=== PATIENT | female | born 1940 | race Caucasian/White ===

== ENCOUNTER → 2016-09-04 | Outpatient (CLI) | payer OTHER, BC ==
[~2016-09-04] MED LIST: ALLOPURINOL 10100 M1 PO; AMARYL4 MG PO; AMOXICILLIN 50500 MG PO; ASPIRIN OR; ASPIRIN81 M2 PO; AUGMENTIN 875875 MG PO; B-12 DOTS500 MCG PO; BAYER CHEWABLE81 MG PO; BYSTOLIC10 MG PO; CARDIZEM CD240 MG PO; CENTRUM SILVER1 EAC2 PO; CENTRUM SILVER1 EAC4 PO; CIPRO250 M1 PO; CLOBETASOL EMOL15 GM TOP; COZAAR 25 MG TA25 MG OR; DIOVAN 80 MG TA80 M1 PO; EVISTA PO; FLAGYL500 MG PO; FLECAINIDE ACET50 M1 PO; FLORANEX GRANU1 EACH PO; FUROSEMIDE 40 M40 M1; GAS RELIEF 8080 MG PO; GLUCOPHAGE1000 MG; GLUCOPHAGE500 MG PO; HUMALOG PE100 UNIT/1; INSULIN; IRBESARTAN-HCT1 EAC1 PO; K-DUR 20 MEQ T20 MEQ PO; KEFLEX500 MG PO; KLOR-CON 1010 MEQ PO; LAMISIL250 MG; LASIX 40 MG TAB40 M1 PO; LASIX 40 MG TAB40 M2 PO; LASIX 80 MG TAB80 M1 PO; LASIX 80 MG TAB80 MG PO; LEVAQUIN 500 M500 M2 PO; LEVAQUIN 500 M500 M5 PO; LEVEMIR SUBQ; LEVOFLOXACIN750 MG PO; LORTAB 5 MG/5001 TA1 PO; LOSARTAN-HCTZ1 EAC2 PO; METFORMIN HCL500 MG PO; MICARDIS40 MG; MICARDIS40 MG PO; MONISTAT 745 GM VAG; MULTIVITAMINS PO; NAFTIN45 GM; NAFTIN45 GM TP; NORCO 10-325 T1 EACH PO; NOVOLOG100 UNIT/1; POTASSIUM CITR10 ME1 PO; POTASSIUM20 PO; PRAVACHOL20 MG PO; PROTONIX40 M2 PO; SIMETHICON CHEW80 MG PO; TYLENOL325 MG PO; VESICARE 5 MG TA5 MG PO; VITAMIN D1000 UNI1 PO; VITAMIN D32000 UNI1 PO; VITAMIN D400 UNI1 PO; ZOCOR 20 MG TAB20 M1 PO; [UNRECOGNIZED DRUG - OTHER]
== END ==
LOC: RAD 11:57
DX: N20.0 Calculus of kidney (principal); N20.1 Calculus of ureter

== ENCOUNTER 2016-10-24 11:12 | Inpatient (IN) | payer OTHER, BC ==
[~2016-10-24] VITALS: Ht 152.4 cm; Wt 99.3 kg
--- NOTE | ~2016-10-24 | D ---
[facility] [place] [address] DISCHARGE SUMMARY Name: AGGIE YING SHELBIE Room #: 420-P [facility] IN M.R.#: [id number] Admission: 10/24/16 Attend Phys: Leroy Chávez MD Discharge: 10/27/16 Date of : 42 Report #: [id number] THIS REPORT FOR: //name// CC: Leroy Chávez DATE OF SERVICE: 10/27/2016 SUMMARY OF HISTORY AND PHYSICAL: The patient has a known history of kidney stones, but was pleased that she had not been in the hospital for over a year, until she presented to my office on 10/23/2016. She was in her usual state of health when she woke that morning and noted that she had a bloody urine. She came to the office where urinalysis was positive and was started on sulfamethoxazole/trimethoprim. She felt well, had been eating and drinking well and reported no weakness. However, the morning of admission, she awoke extremely weak and had difficulty walking to the bathroom. When she sat down on the toilet, she actually was so weak that she slid off to one side and fell on the floor. She was so weak, it took her 2 hours before she was able to move across her home to the telephone where she was able to call her family to come and unlock the door, after which she was taken by the paramedics to the emergency room. She was found to be extremely weak, have marked leukocytosis as well as grossly red urine and required admission for intravenous antibiotics as well as intravenous fluid support. She appeared septic. SUMMARY OF HOSPITAL COURSE: She was placed on a telemetry floor with intravenous antibiotics and intravenous fluid support. She steadily did well. She remained in normal sinus rhythm throughout and there was no hint that she might have an episode of her paroxysmal atrial fibrillation. The second day, she was much better and was able to walk some around her room with the help of a walker and with physical therapy. She felt ready to be discharged the following day. On the third hospital day, 10/27/2016, she felt quite confident about returning home. She told that to the nursing staff. She appeared to the nursing staff to be stable, she was eating and drinking well, did not have nausea, vomiting or diarrhea, and was able to get around her hospital room herself with the aid of her walker. Her urine culture from the hospital returned with exactly the same organism and same sensitivity pattern as was done the day before, 10/23/2016, in the office, and multiple previous cultures prior to that were done in the office. The organism is Klebsiella pneumoniae and was sensitive to everything except ampicillin. [address] [address] DISCHARGE SUMMARY Name: AGGIE YING SHELBIE Room #: 420-P [facility] IN M.R.#: [id number] Admission: 10/24/16 Attend Phys: Leroy Chávez MD Discharge: 10/27/16 Date of : 42 Report #: [id number] She was seen in her urologist, Dr. Gabino Odom. SUMMARY OF LABORATORY DATA: Her potassium was low at 3.3. She was hydrated on admission with a BUN of 21, which dropped to 16 with rehydration. Her creatinine was 1.2 on admission, also dehydrated, and with rehydration dropped to 0.8 -- fulfilling the criteria for acute renal failure. Her blood sugar high was 257, but improved with rehydration, with her feeling better, and with sliding scale insulin. Her liver function tests were elevated with SGOT of 110 that improved to 68 at discharge. Her albumin was low at 3.0 on admission and dropped to 2.5 with rehydration. Her white count easily portrayed the picture of sepsis -- 19,000 on admission with a left shift from 13% band forms. There were 2% lymphocytes, which gave an absolute lymphocyte count of 380, also qualifying for severe malnutrition. Urinalysis was grossly abnormal with 2+ leukocytes, many WBCs, many bacteria with many squamous epithelial cells. The trimethoprim sulfa that she had taken already put a dent in her urine culture, greater than 100,000 CFU/mL present on October 23 in my office, after taking her trimethoprim sulfa, the colony count dropped to 40,000 but it was sensitive to all antibiotics tested (it was not tested against ampicillin as a solo agent). Note is made that this same organism was not present in 2016 on multiple occasions but was present in 2013. CT scan of the head on admission showed no acute abnormalities and simply a scattered low density periventricular white matter changes that are consistent with her age. Fluid retention cyst was possible in the sphenoid sinus. CT scan for renal stone protocol showed atelectasis within the lung bases, diffuse fatty liver and adenoma of the right adrenal gland with generalized thickening of left adrenal gland suggesting hyperplasia. Stones on the right mid calyces measured up to 3.1 cm in cranial caudal and 9 mm in transverse and AP dimensions with several smaller stones in the left inferior kidney and left middle kidney measuring up to 4 mm in size. Diverticulosis without diverticulitis was seen. Uterus, ovaries and bladder were unremarkable. A stable fat containing supraumbilical hernia was present. DISCHARGE DIAGNOSES: 1. Acute pyelonephritis with renal parenchymal and systemic effects, infection in the urinary tract. 2. Marked weakness as an organ dysfunction from severe sepsis. 3. Arterial hypoxemia as a organ dysfunction with estimated paO2 of 73 despite supplementation with 2 liters of nasal oxygen for an paO2/FiO2 ratio of 260 (less than 300). [facility] [address] [place] [address] DISCHARGE SUMMARY Name: AGGIE YING SHELBIE Room #: 420-P [facility] IN M.R.#: [id number] Admission: 10/24/16 Attend Phys: Leroy Chávez MD Discharge: 10/27/16 Date of : 42 Report #: [id number] 4. Acute renal failure with a creatinine of 1.2 on admission that dropped to 0.8 with rehydration, acute renal failure due to volume depletion. 5. Severe malnutrition present on admission with an albumin that dropped to 2.5 with rehydration, and absolute lymphocyte count of 380 on admission. 6. Atelectasis was present on the CT scanning adding to respiratory failure. 7. Hypokalemia present on admission and persisted. 8. Paroxysmal atrial fibrillation was controlled by her medications and did not occur. 9. Fatty liver was displayed on CT scanning. 10. Severe bilateral kidney stone disease -- a large kidney stone present on the right, 3.1 cm cranial caudal by 9 mm AP and 9 mm transverse dimensions. The left mid and left inferior kidney small stones are present measuring up to 4 mm. 11. Small right adrenal mass characteristic of a small adenoma that is stable from prior study of 09/20/2015. 12. Stable left adrenal thickening suggestive of hyperplasia. 13. The gallbladder is surgically absent. 14. Diverticulosis without diverticulitis. 15. Uterus, ovaries and bladder remained unremarkable. 16. Age-related ischemic white matter disease in the brain. 17. Sphenoid sinus mass with some characteristics of a cyst of fluid retention, mucus or soft tissue lesion with no prior CT studies available for comparison. 18. Type 2 diabetes. 19. Morbid obesity. 20. Chronic edema of the lower extremities. 21. Chronically infected urine and kidney stones with the same organism -- pansensitive Klebsiella pneumoniae. 22. Left breast cancer 2009, stage 0 with lumpectomy and radiation. 23. Chronic lymphedema with compression stockings. 24. Glaucoma. 25. 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 26. Hypertension. 27. Psoriasis that can be severe. 28. Atherosclerotic vascular disease. 29. History of lumbar spinal stenosis with sciatica. 30. Complicated left renal stone lithotripsy 07/26/2015 -- 08/27/2015. 31. Multiple allergies: AMOXICILLIN, CEPHALEXIN, note is made she tolerated Zosyn in hospital and Augmentin in the past. Other allergies are noted. PLAN: The patient is discharged to follow up with home health at home -- she tolerated ciprofloxacin 250 mg twice daily and was sent to her home pharmacy. Her potassium citrate 10 mEq extended release tablets were doubled from 1-2 tablets 3 times daily because of her chronically low potassium. She is to continue Bystolic 10 mg daily, diltiazem 240 mg extended release once daily, flecainide 50 mg twice daily, pravastatin 20 mg daily, metformin 500 mg 2 tablets daily, Evista 60 mg daily for her breast cancer, allopurinol 100 mg once [address] [address] DISCHARGE SUMMARY Name: AGGIE YING SHELBIE Room #: 420-P [facility] IN ..#: [id number] Admission: 10/24/16 Attend Phys: Leroy Chávez MD Discharge: 10/27/16 Date of : 42 Report #: [id number], aspirin 81 mg daily and B12 tablets 1000 mcg twice daily. She can also resume vitamin D several thousand units daily, simethicone as needed, Valsartan 40 mg daily when her blood pressure returns to being elevated and furosemide 40 mg once daily when her swelling returns to be a problem. Simethicone can be resumed. She is to see me in my office in 1 week. She is encouraged to follow up with Dr. Gabino Odom, her urologist. Impression is that her kidney stones are infected and removal of the kidney stones will be required to rid her of the risk of recurrent infections. She is also to follow up with Dr. Franko Zapata, her deputy k 9. By: 22 2334 Leroy Chávez MD /isidra
--- NOTE | ~2016-10-24 | H ---
[facility] [place] [address] HISTORY AND PHYSICAL Name: AGGIE YING SHELBIE Room #: 420-P [facility] IN M.R.#: [id number] Admission: 10/24/16 Attend Phys: Leroy Chávez MD Discharge: 10/27/16 Date of : 42 Report #: [id number] THIS REPORT FOR: //name// CC: Leroy Chávez DATE OF SERVICE: 10/24/2016 CHIEF COMPLAINT: Pyelonephritis, possibly sepsis from recurrent urinary tract infection caused by chronically infected kidney stones. HISTORY OF PRESENT ILLNESS: The patient had been doing pretty well and was pleased that she had not been admitted to the hospital for more than a year when yesterday morning she awoke feeling not quite usual, and noticed that she had bright red urine. She immediately made an appointment, came to the office where the urine was indeed red and was 3+ positive for blood and leukocytes. She has had several recent episodes of bacteria in her urine that have all been the same bacteria: Klebsiella pneumoniae with the same resistance pattern: resistant to ampicillin, sensitivities to cefazolin are not reported, and otherwise sensitive to all the other antibiotics commonly tested. Note is made that on September 11, she had 50,000 to 100,000 per mL whereas August 21, it was greater than 100,000 per mL. She was given a prescription for sulfamethoxazole/trimethoprim double strength 1 twice daily and went home. She had reported that she had just been to see her urologist Dr. Odom who had told her that she had no kidney stones, and was quite pleased with that report. This morning, she awoke very weak, had difficulty making it to the bathroom, but when she sat down on the toilet, she actually slid off to the side and fell on the floor. She insists it took her 2 hours before she was able to maneuver herself to her telephone. She was able to call her son, who came in, unlocked the front to let the paramedics in. She was evaluated in the Emergency Room and found to be quite weak, and to have leukocytosis as well as still red grossly abnormal urine and to require admission for intravenous antibiotics. She also required admission for intravenous fluids because of nausea and vomiting. She has complicated bilateral large kidney stones and was admitted 5 times in a 3-month span of time. She was first admitted with sepsis and Proteus mirabilis in the urine and the blood. She had hydronephrosis on the left and a percutaneous nephrostomy. She underwent lithotripsy and became sensitive afterwards as the cause of that admission. She underwent a left percutaneous nephrostomy and lithotomy. She then developed cellulitis in her legs followed by an atypical pneumonia and fever to 103 and dehydration with volume depletion and elevated creatinine/acute kidney failure led to accumulation of her oral hypoglycemics and profound low blood sugars. [facility] [address] [place] [address] HISTORY AND PHYSICAL Name: AGGIE YING SHELBIE Room #: 420-P [facility] IN M.R.#: [id number] Admission: 10/24/16 Attend Phys: Leroy Chávez MD Discharge: 10/27/16 Date of : 42 Report #: [id number] She also had had several episodes of paroxysmal atrial fibrillation, now requires oral antidysrhythmics. She has type 2 diabetes requiring insulin at times. Left breast cancer stage 0 with a lumpectomy and radiation in 2009 and was just recently released by her oncologist. She wears compression stockings at times for her lymphedema in both lower legs and she has chronic severe morbid obesity. Cholecystectomy in September 2010, diverticulitis episodes, glaucoma, constant yeast inflammation underneath her pannus, hypertension, psoriasis, atherosclerotic vascular disease, hepatic steatosis, overactive bladder, history of lumbar spinal stenosis with sciatica. CURRENT MEDICATIONS: Centrum Silver daily. She takes reloxafen (Evista) 60 mg once daily for treatment and prevention of recurrence of her breast cancer, flecainide 1 tablet 150-mg tablet twice daily, metformin 500 mg 2 in the morning and 2 in the evening, 1 baby aspirin, vitamin D 1000 units, pravastatin 20 mg in the evening, potassium citrate 10 mEq 1 in the morning and 2 in the evening, valsartan 40 mg daily for blood pressure, Bystolic 10 mg daily for blood pressure and heart rhythm control, diltiazem extended release 240 mg 1 in the morning, chlorthalidone 50 mg once daily, allopurinol 100 mg 1/2 tablet daily, and recently started 1000 mcg of vitamin B12 orally twice daily for vitamin B12 deficiency. ALLERGIES: CODEINE causes instant diarrhea, CEPHALEXIN causes red face, AMOXICILLIN causes diarrhea, but she has been able to take Augmentin in the past. She tolerates Zosyn well and there is another entry where she reports AMOXICILLIN caused rash. FAMILY HISTORY: Noncontributory. REVIEW OF SYSTEMS: She sleeps in a recliner because of chronic back pain, she also undoubtedly has significant obstructive sleep apnea which she dismisses. She has chronic intertriginous irritation underneath the folds of her pannus. ADDITIONAL DIAGNOSES: Glaucoma, arthritis, bladder dysfunction, lumbar spinal stenosis, gallstone pancreatitis in August of 2000 with a subsequent cholecystectomy. Chronic lower extremity edema and morbid obesity, aortic stenosis, colon polyps, colonoscopy 01/15/2014, found [address] Vicente, sigmoid diverticulosis without inflammation and internal hemorrhoids, and a repeat colonoscopy recommended in 5 years, 01/15/2019. PHYSICAL EXAMINATION: GENERAL: A 76-year-old morbidly obese woman in her hospital bed and she appears weak and exhausted. She is alert and able to answer questions appropriately. She was nauseated and the exam had to be interrupted for her to throw up. [facility] [email or web address] [address] HISTORY AND PHYSICAL Name: AGGIE YING SHELBIE Room #: 420-P [facility] IN [facility].#: [id number] Admission: 10/24/16 Attend Phys: Leroy Chávez MD Discharge: 10/27/16 Date of : 42 Report #: [id number] HEENT: Remarkable for dry oral mucosa. LUNGS: Clear. CARDIOVASCULAR: Tones are normal and there is a soft systolic murmur present. NECK: There is no CVA tenderness present. ABDOMEN: Morbidly obese, soft, and nontender. EXTREMITIES: There is moderate edema in the extremities to above the knee, the skin of the lower legs is intact. NEUROLOGIC: Screening neurological examination is grossly intact. LABORATORY DATA: CT scan shows a small adenoma in the right adrenal gland and mild left adrenal hyperplasia. There are multiple stones in the right mid calyces with the largest being 3.1 cm craniocaudal and 9 mm AP and 9 mm transverse with small stones within the mid and left inferior kidney measuring up to 4 mm. White blood cell count is 19,000 with 13% bands and 83% segmented neutrophils. Her creatinine was 1.2 with a BUN of 21 and an estimated GFR 44. This qualifies for acute renal failure given her baseline creatinine 0.82 and estimated GFR of 70. Her baseline BUN is 21, and the current BUN of 21 indicates that she has been vomiting and not eating well. Magnesium is low at 1.7. ASSESSMENT: 1. She appears to have some of the criteria of sepsis. 2. Source of sepsis is an infection in the urinary tract. 3. Persistent bilateral kidney stones, suspected of being the source of the infection. 4. Systemic organ dysfunction: Gastrointestinal tract in that she is vomiting, muscles with extreme weakness, and acute renal failure. 5. Acute renal failure based on volume depletion. 6. Other multiple medical problems. 7. Paroxysmal atrial fibrillation - currently in sinus rhythm. 8. Other multiple medical problems as listed above. PLAN: The patient is admitted to at [facility] telemetry unit, and given intravenous antibiotics. She is being given intravenous fluid replacement as well. She has been seen by the physician diver assistant of the Urology Service. She is receiving effective medications to help control her nausea. Magnesium will be replaced [place] [address] HISTORY AND PHYSICAL Name: AGGIE YING SHELBIE Room #: 420-P [facility]..#: [id number] Admission: 10/24/16 Attend Phys: Leroy Chávez MD Discharge: 10/27/16 Date of : 42 Report #: [id number] ADDITIONAL DIAGNOSIS: Diffuse marked weakness. <ELECTRONICALLY SIGNED> By: Leroy Chávez MD 10/31/16 2037 [id number] [id number] Leroy Chávez MD /nt
--- NOTE | ~2016-10-24 | EKG ---
[place] [address] [place] [address] ELECTROCARDIOGRAM REPORT Name: AGGIE YING SHELBIE Room #: 420-P ADM IN M.R.#: [id number] Admission: 10/24/16 Attend Phys: Leroy Chávez MD Discharge: Date of : 42 Report #: [id number] THIS REPORT FOR: //name// [facility] ED Test Date: 2016-10-24 Test Time: 11:56:59 Pat Name: AGGIE YING Department: Room: [facility] Gender: F Web Development Manager: harley : 1940 Requested By: Jojo Kim Order Number: [id number] MD: Dwight Jay Measurements Intervals [place] Rate: 89 P: 0 ME: 156 QRS: -70 QRSD: 138 T: 11 QT: 410 QTc: 499 Interpretive Statements Sinus rhythm with first degree AV block Left bundle branch block No previous ECG available for comparison Electronically Signed On 10-24-2016 19:08:03 CDT by Dwight Jay [email or web address] <ELECTRONICALLY SIGNED> By: Dwight Jay MD, [facility] 10/24/16 1908 1156 1156 Dwight Jay MD, FACC /EPI
--- NOTE | ~2016-10-24 | EKG ---
[place] [address] [facility] [employer] [place] [address] ELECTROCARDIOGRAM REPORT Name: AGGIE YING SHELBIE Room #: 420-P ADM IN M.R.#: [id number] Admission: 10/24/16 Attend Phys: Leroy Chávez MD Discharge: Date of : 42 Report #: [id number] THIS REPORT FOR: //name// [facility] Test Date: 2016-10-24 Test Time: 19:58:04 Pat Name: AGGIE YING Department: Room: 420 P Gender: F Liability Claims Examiner: Griselda PADILLA : 1940 Requested By: Leroy Chávez Order Number: [id number] MD: Dwight Jay Measurements Intervals [place] Rate: 76 P: 12 WY: 232 QRS: -72 QRSD: 132 T: 10 QT: 448 QTc: 504 Interpretive Statements Sinus rhythm Prolonged [place] interval Left bundle branch block Compared to ECG 10/24/2016 11:56:59 No significant change was found Electronically Signed On 10-25-2016 9:03:39 CDT by Dwight Jay [email or web address] <ELECTRONICALLY SIGNED> By: Dwight Jay MD, [facility] 03/902 57 57 Dwight Jay MD, [facility] /EPI
[~2016-10-24 11:12] MED LIST changes: -ALLOPURINOL 10100 M1 PO; -ASPIRIN81 M2 PO; -B-12 DOTS500 MCG PO; -CENTRUM SILVER1 EAC2 PO; -CIPRO250 M1 PO; -DIOVAN 80 MG TA80 M1 PO; -KLOR-CON 1010 MEQ PO; -POTASSIUM CITR10 ME1 PO
[2016-10-24 12:11] LABS: URINE BILIRUBIN 1+ (Negative); URINE BLOOD 3+ (Negative); URINE COLOR YELLOW; URINE GLUCOSE-RANDOM* NEGATIVE (Negative); URINE KETONES TRACE (Negative); URINE LEUKOCYTES-REFLEX 2+ (Negative); URINE PROTEIN (DIPSTICK) 2+ (Negative); URINE UROBILINOGEN 0.2 E.U./dl (0.2-1.0)
[2016-10-24 12:13] LABS: ICTOTEST (BILI CONFIRMATORY) Positive (Negative)
[2016-10-24 12:21] LABS: CASTS None Seen /LPF (None Seen); CRYSTALS None Seen /LPF (None Seen); SQUAMOUS >10 Many /LPF (0-3)
[2016-10-24 12:22] LABS: URINE RBC >20 Many /HPF (0-2)
[2016-10-24 13:13] LABS: HEMATOCRIT 36.3 % (37.0-47.0); HEMOGLOBIN 12.1 gm/dL (12.0-15.0); MCHC 33.2 g/dL (28.0-37.0); MCV 93.3 fL (80.0-100.0); PLATELET COUNT 185 thou/uL (150-400); RBC 3.89 mil/uL (4.20-5.00); RDW 14.8 % (10.5-14.5)
[2016-10-24 13:16] LABS: MANUAL DIFF YES
[2016-10-24 13:40] LABS: ANION GAP 11 mmol/L (7-16); BUN 21 mg/dL (7-18); CALCIUM 9.9 mg/dL (8.5-10.1); CHLORIDE 100 mmol/L (98-107); CO2 24 mmol/L (21-32); CREATININE 1.2 mg/dL (0.6-1.3); GLUCOSE 257 mg/dL (70-99); MAGNESIUM 1.7 mg/dL (1.8-2.4); NT-PRO BRAIN NAT PEPTIDE 1982 pg/mL (<300); POTASSIUM 3.3 mmol/L (3.5-5.1); SODIUM 135 mmol/L (136-145); TROPONIN-I < 0.04 ng/mL (<0.04-0.07)
[2016-10-24 13:54] LABS: ABSOLUTE NEUTROPHILS 18.2 thou/uL (1.4-8.2); PLATELET ESTIMATE NORMAL; TOTAL CELL COUNT 100
[2016-10-24] MEDS ORDERED: KLOR-CON 1010 MEQ PO (18:14)
[2016-10-24] MEDS ORDERED: DIOVAN 80 MG TA80 M1 PO (18:16)
[2016-10-24] MEDS ORDERED: EVISTA PO (18:17)
[2016-10-24] MEDS ORDERED: ALLOPURINOL 10100 M1 PO (18:26)
[2016-10-24] MEDS ORDERED: CENTRUM SILVER1 EAC2 PO (18:33)
[2016-10-24] MEDS ORDERED: ASPIRIN81 M2 PO (18:33)
[2016-10-24] MEDS ORDERED: B-12 DOTS500 MCG PO (18:36)
[2016-10-25 06:47] LABS: HEMATOCRIT 33.3 % (37.0-47.0); HEMOGLOBIN 11.3 gm/dL (12.0-15.0); MCH 31.6 pg (26.0-34.0); MCHC 34.1 g/dL (28.0-37.0); MCV 92.7 fL (80.0-100.0); PLATELET COUNT 168 thou/uL (150-400); RBC 3.59 mil/uL (4.20-5.00); RDW 14.6 % (10.5-14.5); WBC 10.8 thou/uL (4.0-11.0)
[2016-10-25 06:48] LABS: MANUAL DIFF YES
[2016-10-25 07:06] LABS: CALCIUM 9.8 mg/dL (8.5-10.1); CREATININE 1.2 mg/dL (0.6-1.3); MAGNESIUM 1.9 mg/dL (1.8-2.4); POTASSIUM 3.3 mmol/L (3.5-5.1); TOTAL BILIRUBIN 0.5 mg/dL (<0.1-1.0)
[2016-10-25 07:42] LABS: ABSOLUTE NEUTROPHILS 10.3 thou/uL (1.4-8.2); ATYPICAL LYMPHS 1 %; TOTAL CELL COUNT 100
[2016-10-25 07:43] LABS: ANISOCYTOSIS SLIGHT
[2016-10-27 04:11] LABS: ABSOLUTE NEUTROPHILS 3.1 thou/uL (1.4-8.2); BASOPHILS 0.4 % (0.0-2.0); EOSINOPHILS 8.4 % (0.0-3.0); HEMATOCRIT 30.4 % (37.0-47.0); HEMOGLOBIN 10.4 gm/dL (12.0-15.0); LYMPHOCYTES 19.2 % (24.0-44.0); MCH 31.7 pg (26.0-34.0); MCHC 34.2 g/dL (28.0-37.0); MCV 92.9 fL (80.0-100.0); MONOCYTES 9.1 % (1.0-8.0); PLATELET COUNT 156 thou/uL (150-400); POLYS 62.9 % (36.0-66.0); RBC 3.27 mil/uL (4.20-5.00); RDW 14.5 % (10.5-14.5); WBC 4.9 thou/uL (4.0-11.0)
[2016-10-27 04:23] LABS: MANUAL DIFF NO
[2016-10-27 04:35] LABS: ALBUMIN 2.5 g/dL (3.4-5.0); CREATININE 0.8 mg/dL (0.6-1.3); MAGNESIUM 1.8 mg/dL (1.8-2.4); POTASSIUM 3.3 mmol/L (3.5-5.1); TOTAL BILIRUBIN 0.4 mg/dL (<0.1-1.0); TOTAL PROTEIN 6.2 g/dL (6.4-8.2); URIC ACID* 4.9 mg/dL (2.6-7.2)
[2016-10-27] MEDS ORDERED: POTASSIUM CITR10 ME1 PO (14:49)
[2016-10-27] MEDS ORDERED: CIPRO250 M1 PO (14:49)
== END 2016-10-27 16:43 | disposition home health service (06) | DRG 871 ==
LOC: ER 11:12 → 4E 13:59 → EROBS 13:59 → 4E 14:15
PROVIDERS: Emergency Medicine; Internal Medicine
PROC: 02HV33Z Insertion of Infusion Device into Superior Vena Cava, Percutaneous Approach (ICD-10-PCS; principal; 2016-10-26)
DX: A41.9 Sepsis, unspecified organism (principal); J96.00 Acute respiratory failure, unspecified whether with hypoxia or hypercapnia; N12 Tubulo-interstitial nephritis, not specified as acute or chronic; N17.9 Acute kidney failure, unspecified; Z68.41 Body mass index [BMI] 40.0-44.9, adult; I48.0 Paroxysmal atrial fibrillation; E11.9 Type 2 diabetes mellitus without complications; H40.9 Unspecified glaucoma; L40.9 Psoriasis, unspecified; E78.00 Pure hypercholesterolemia, unspecified; I10 Essential (primary) hypertension; M19.90 Unspecified osteoarthritis, unspecified site; E66.01 Morbid (severe) obesity due to excess calories; K57.30 Diverticulosis of large intestine without perforation or abscess without bleeding; E86.9 Volume depletion, unspecified; M54.30 Sciatica, unspecified side; I25.10 Atherosclerotic heart disease of native coronary artery without angina pectoris; N20.0 Calculus of kidney; Z88.1 Allergy status to other antibiotic agents; Z90.49 Acquired absence of other specified parts of digestive tract; Z93.6 Other artificial openings of urinary tract status; Z88.6 Allergy status to analgesic agent; Z85.3 Personal history of malignant neoplasm of breast
CPT/HCPCS: 10183

== ENCOUNTER → 2017-01-04 | Outpatient (CLI) | payer OTHER, BC ==
[~2017-01-04] MED LIST changes: +ALLOPURINOL 10100 M1 PO; +ASPIRIN81 M2 PO; +B-12 DOTS500 MCG PO; +CENTRUM SILVER1 EAC2 PO; +CIPRO250 M1 PO; +DIOVAN 80 MG TA80 M1 PO; +KLOR-CON 1010 MEQ PO; +POTASSIUM CITR10 ME1 PO
== END ==
LOC: RAD 11:24
DX: N20.2 Calculus of kidney with calculus of ureter (principal)

== ENCOUNTER 2017-03-30 11:19 | Inpatient (IN) | payer OTHER, BC ==
[~2017-03-30] VITALS: Ht 154.9 cm; Wt 104.3 kg
--- NOTE | ~2017-03-30 | H ---
[facility] [place] [address] HISTORY AND PHYSICAL Name: AGGIE YING SHELBIE Room #: 410-P ADM IN M.R.#: [id number] Admission: 03/30/17 Attend Phys: Leroy Chávez MD Discharge: Date of : 42 Report #: [id number] THIS REPORT FOR: //name// CC: Leroy Chávez DATE OF SERVICE: 03/30/2017 CHIEF COMPLAINT: Left back and flank pain. HISTORY OF PRESENT ILLNESS: Last night, the patient began to have pain in the lower left side of her back, not far from the midline. This came for a few seconds and then resolved for a few seconds and then would return again after a much longer period of time. As the night progressed, it came more frequently and persisted for slightly longer. In the plastic surgery coordinator hours it was more severe and more bothersome and prompted her to present to the Emergency Room for further evaluation. She has a long history of complicated bilateral renal stone disease. She has stones that persist on the right side and quite a few more stones that persist in left kidney and renal drainage system. She had treatment of the stones on her left side by lithotripsy 08-08-15. She became septic after the lithotripsy and was admitted on 08/12/2015. She required admission for percutaneous nephrostolithotomy on the left side in September 2015. Because of poor appetite she was admitted the following month for hypoglycemia due to oral sulfonylureas. She was admitted for 2 episodes of cellulitis in October 2016. She has had several urinary tract infections since then and once again presented to the office on March 25 with gross hematuria. Based on a culture taken earlier this year, she was prescribed nitrofurantoin, which she took for the next several days until 03/27. Her antibiotic was changed to Levaquin based on once daily dosing and culture and sensitivity results. The actual culture and sensitivity results are not currently available to me. She started on the Levaquin, and her hematuria and urinary tract symptoms continued to improve. PAST MEDICAL HISTORY: Significant for complex bilateral stone disease. Her urologist is Dr. Gabino Odom, and her insurance claims specialist is Dr. Franko Zapata. She had several episodes over the years of rapid atrial fibrillation that always resolved when her primary illnesses were treated, but on 08/12/2015, she presented in rapid atrial fibrillation that did require permanent treatment with antidysrhythmia agents. She was in septic shock at that time, but her broth mixer, Dr. Kendrick Arroyo, recommended she remain on antidysrhythmic medications at discharge, and she has remained on these medications since then. She also has hypertension; hyperuricemia; B12 deficiency; type 2 diabetes; dyslipidemia; what appears to be persistent or recurrent kidney stones; morbid [address] [address] HISTORY AND PHYSICAL Name: AGGIE YING SHELBIE Room #: 410-P [facility] IN M.R.#: [id number] Admission: 03/30/17 Attend Phys: Leroy Chávez MD Discharge: Date of : 42 Report #: [id number] obesity; at times she has marked lower extremity edema that progresses to cellulitis; hepatic steatosis; she has had a subcapsular hematoma of the spleen identified serendipitously in August 2015; diastolic congestive heart failure; left breast cancer, stage 0 in 2009, treated with lumpectomy and radiation; 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 She has psoriasis of the hands that can cause [id number] symptoms. She reports an allergy to PENICILLIN but has tolerated Augmentin and amoxicillin in the past. Pyelonephritis on 07/16/2013. Overactive bladder, history of osteoporosis, small supra-umbilical hernia containing fat by CT scan. CURRENT MEDICATIONS: Levaquin 500 mg once daily, allopurinol 100 mg daily, 81 mg aspirin daily, chlorthalidone 50 mg daily, B12 1000 mcg twice daily, diltiazem 240 mg CD once daily, flecainide 50 mg twice daily, nebivolol (Bystolic) 10 mg daily, metformin 500 mg twice daily, multiple vitamins with minerals, potassium citrate extended release 10 mEq tablets taking 2 tablets 3 times daily for a total of 6 tablets daily, pravastatin/simvastatin 20 mg once daily and raloxifene (Evista) 60 mg once daily. ALLERGIES: Listed are CODEINE, CEPHALEXIN, AMOXICILLIN AND PENICILLIN. Note taken that she has taken Augmentin and amoxicillin recently. SOCIAL HISTORY: She lives in her own home, and her son lives in her home with her and provides substantial support. She does not drink nor smoke. She is a retired . REVIEW OF SYSTEMS: Negative except for the HPI above. OBJECTIVE: GENERAL: Exam shows a 76-year-old woman appearing in moderate distress at the time of my examination. HEENT: Unremarkable except the oral mucosa is mildly dry. LUNGS: Clear anteriorly and posteriorly. CARDIOVASCULAR: S1 and S2 are normal. ABDOMEN: There is CVA tenderness present on the left side. The patient resisted the examiners testing for CVA tenderness by guarding. The abdomen is [facility] [address] [place] [address] HISTORY AND PHYSICAL Name: AGGIE YING SHELBIE Room #: 410-P ADM IN M.R.#: [id number] Admission: 03/30/17 Attend Phys: Leroy Chávez MD Discharge: Date of : 41 Report #: [id number] soft, obese and nontender. EXTREMITIES: At the time of the examination, there was a very little excess fluid in the calves or in the feet. The skin of the feet was intact when examined in my office several days ago, and light touch was minimally diminished at that time. There remains leukocyte esterase and red blood cells in the urine. ASSESSMENT: 1. Back pain caused the presentation. 2. There is indeed left costovertebral angle tenderness that could correspond to kidney stones seen in the left renal pelvis, or pyelonephritis. 3. Recurrent urinary tract infections suggestive of chronically infected kidney stones. 4. Chronic kidney stone disease, more stones on the right. Hx left lithotripsy. 5. Stable medically converted atrial fibrillation. 6. Type 2 diabetes. 7. Hypertension. 8. Treated atrial fibrillation. 9. Morbid obesity. 10. Likely undiagnosed and untreated obstructive sleep apnea. PLAN: The patient is admitted for intravenous medications for pain control, intravenous fluids to maintain hydration, antibiotics and medication for nausea. Urology consultation will be obtained as well. Full code blue is requested. By: [id number] Leroy Chávez MD /isidra
--- NOTE | ~2017-03-30 | D ---
[facility] [place] [address] DISCHARGE SUMMARY Name: AGGIE YING Room #: 410-P [facility] IN M.R.#: [id number] Admission: 03/30/17 Attend Phys: Leroy Chávez MD Discharge: 04/01/17 Date of : 42 Report #: [id number] THIS REPORT FOR: //name// CC: Gabino Zapata MD DATE OF SERVICE: 04/01/2017 SUMMARY OF HISTORY AND PHYSICAL: The patient came to the Emergency Room because of pain in the left flank region that became severe and led to nausea. She was found to have active kidney stone disease and required admission for intravenous hydration, intravenous analgesics, and further evaluation and therapy. SUMMARY OF HOSPITAL COURSE: The patient was admitted and was given intravenous fluids and intravenous morphine for pain relief. She had nausea and required intravenous ondansetron as well. On the second hospital day, her pain resolved and her nausea resolved and she was able to eat and drink well on her own. After 24 hours of being able to swallow her medication reliably and hydrate herself orally, she was discharged. In the last 24 hours of her hospital stay, she did not require any pain medication at all. She was seen by Dr. Elfego Hargrove and then by her urologist Dr. Gabino Odom prior to discharge. A CT scan of the abdomen and pelvis without contrast showed a progressive bilateral stone disease. There were no ureteral stones at the time of the exam. There were signs of irritation from the kidney stones, as noted below. LABORATORY DATA: Her creatinine on admission was 1.2, mildly elevated from her baseline of 0.8 and 0.9. Her fingerstick blood sugars vary between 116 and 209. Her SGOT was mildly elevated at 46 and uric acid was in the normal treated range at 5.5. Albumin was 2.4. EGFR was 44 and 54. Troponin was negative. Hemoglobin was 12.8 on admission, showing volume depletion with baseline hemoglobin between 10 and 11. WBCs were 7.6 thousand with a mild left shift of 70.8% neutrophils. Urinalysis showed 1+ protein, 3+ blood and 2+ leukocytes with moderate squamous epithelial cells. There were many wbc's and 20 rbc's per high powered field. Urine culture was negative, explained by the fact that the patient was taking levofloxacin at the time of admission. Portable chest x-ray was unremarkable. Renal ultrasound showed bilateral stones. There is no hydronephrosis. CT scan of the abdomen and pelvis without contrast showed a fatty infiltration of the liver. Bilateral renal stones with some perinephric stranding was seen on both sides, with stranding greater on the [address] [address] DISCHARGE SUMMARY Name: AGGIE YING Room #: 410-P [facility] IN M.R.#: [id number] Admission: 03/30/17 Attend Phys: Leroy Chávez MD Discharge: 04/01/17 Date of : 41 Report #: [id number] left than the right. No obstructing stones were seen, especially on the left. Large calculi on the right trending to have a staghorn type configuration. There were large stones on the left also. The aortic calcification was seen without aneurysm. A small hernia just above the umbilicus contained fat. ASSESSMENT: 1. Acute left flank pain, possibly from a small stone that had passed. 2. Bilateral fat stranding of the kidneys, greater on the left than the right. 3. Extensive bilateral kidney stone disease, that appears to be progressive, with the formation of staghorn like stones on the right. 4. Previous lithotripsy on the left kidney about 08/08/2015, led to sepsis several days later, and ultimately required direct percutaneous instrumentation to remove the residual stones because they would not pass. 5. Atrial fibrillation, controlled by her medications. 6. Fatty liver. 7. Small right adrenal mass on previous CT scan, resolved on the scan done on this hospital stay. 8. History of cholecystectomy. 9. Diverticulosis without diverticulitis. 10. Uterus, ovaries and bladder are unremarkable. 11. History of age-related ischemic white matter on MRI of the brain. 12. Type 2 diabetes. 13. Morbid obesity. 14. Chronic lower extremity edema that responds well to treatments from the [facility] at [facility]. 15. Left breast cancer in 2010, stage 0, treated with lumpectomy and radiation. 16. Chronic lymphedema, treated with compression stockings. 17. Glaucoma. 18. 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 19. Hypertension. 20. Psoriasis that can be severe. 21. Atherosclerotic vascular disease, especially noted of the abdominal aorta on CT scanning. 22. Distant history of lumbar spinal stenosis with sciatica. 23. Multiple allergies: AMOXICILLIN, CEPHALEXIN and note is made that she also tolerated Augmentin in the past orally. PLAN: The patient is to continue to push fluids as much as possible. She is to resume her usual home medications. She is to continue her Levaquin, home antibiotic for her urinary tract infection. She is to see Dr. Odom in his office in approximately 7-10 days. She is to see Dr. Franko Zapata in his office to help manage her stone forming urine chemistry within the next 3-4 weeks. She is to see me in my office in followup [address] [address] DISCHARGE SUMMARY Name: AGGIE YING Room #: 410-[facility]#: [id number] Admission: 03/30/17 Attend Phys: Leroy Chávez MD Discharge: 04/01/17 Date of : 41 Report #: [id number] as well. New medications consisted tramadol 50 mg 1 or perhaps 2 tablets every 4 hours as needed for pain. Hydrocodone one every 4 hours as needed for pain. Ondansetron, she is to take one 4 mg tablet every 4 hours as needed for nausea. She is to be especially sure to take all of her doses of the potassium citrate in order to keep her urine chemistry adjusted to not form kidney stones as many minutes of the day as possible. By: [id number] [id number] Leroy Chávez MD /nt
--- NOTE | ~2017-03-30 | HC ---
[facility] [place] [address] CONSULTATION Name: DEONNAAGGIE SHELBIE Room #: 410-P ADM IN M.R.#: [id number] Admission: 03/30/17 Attend Phys: Leroy Chávez MD Discharge: Date of : 41 Report #: [id number] THIS REPORT FOR: //name// CC: Leroy Chávez DATE OF SERVICE: 03/31/2017 HISTORY OF PRESENT ILLNESS: The patient is a 76-year-old female, well known to our service with a history of recurrent renal stone disease. She presents on this occasion with left flank pain which began on 03/29. She states the pain was in her back with slight radiation to the front. She states the following day, she had nausea and vomiting. She states that she has had so many stones she knew immediately that this was a recurrent stone issue. She states she last had a percutaneous nephrolithotomy in July of 2015. She had not had any stone issues since that time. She has had serious problems with ESWL, in which she became septic. She states that her father did have kidney stones and she does not drink anything caffeinated, but is a poor water drinker. She has also had a history of recurrent urinary tract infections and has been on multiple antibiotics in that regards. She states that since she has been in the hospital, her pain has been well controlled. PAST MEDICAL HISTORY: Medical illnesses, renal stone disease, for which she is seeing Dr. Odom. She states she is also being followed by Dr. Zapata, although she states she has not seen him in some time. MEDICATIONS: Levaquin, allopurinol, chlorthalidone, metformin and potassium citrate 2-3 times a day. ALLERGIES: CODEINE, CEPHALEXIN, AMOXICILLIN and PENICILLIN. FAMILY HISTORY: Per the chart. SOCIAL HISTORY: Per the chart. REVIEW OF SYSTEMS: Per the chart. PHYSICAL EXAMINATION: On examination, her abdomen is soft. LABORATORY DATA: Her white count is 7.6. Her creatinine is 1.0. Her urinalysis shows 3+ blood, 2+ leukocyte esterase and 1-9 bacteria. On her renal ultrasound, she is noted to have a 1.8-cm stone in the lower pole of the right kidney. Her left kidney has multiple stones, the largest measuring 6 mm. She also has a 1-cm stone in the mid pole of the right kidney. IMPRESSION AND PLAN: Bilateral nephrolithiasis/flank pain. The patient was admitted for IV fluids and parenteral pain medication. [place] [address] CONSULTATION Name: AGGIE YING Room #: 410-P [facility] IN [facility]#: [id number] Admission: 03/30/17 Attend Phys: Leroy Chávez MD Discharge: Date of : 41 Report #: [id number] stones. She does not tolerate lithotripsy well. She will thus likely require either flexible ureteroscopy or percutaneous nephrolithotomy. I will leave this to Dr. Odom and company to determine further therapy. I would also recommend that she sees Dr. Zapata as she obviously is continuing to form stones despite her medical therapy. By: [id number] Elfego Hargrove MD /nt
--- NOTE | ~2017-03-30 | EKG ---
[place] [address] [facility] [place] [address] ELECTROCARDIOGRAM REPORT Name: AGGIE YING SHELBIE Room #: 410-P ADM IN M.R.#: [id number] Admission: 03/30/17 Attend Phys: Leroy Chávez MD Discharge: Date of : 41 Report #: [id number] THIS REPORT FOR: //name// [facility] Test Date: 2017-03-30 Test Time: 11:37:42 Pat Name: AGGIE YING Department: Room: 410 Gender: F Manager Legal: mike moya : 1940 Requested By: Cele Smith Order Number: [id number] MD: Dwight Jay Measurements Intervals [place] Rate: 83 P: 69 MD: 55 QRS: -78 QRSD: 139 T: 32 QT: 430 QTc: 506 Interpretive Statements Sinus rhythm Short MD interval Nonspecific intraventricular conduction delay and LAFB Compared to ECG 10/24/2016 19:58:04 No significant change was found Electronically Signed On 03-31-2017 13:47:15 CDT by Dwight Jay [email or web address] <ELECTRONICALLY SIGNED> By: Dwight Jay MD, [facility] 03/31/17 1347 1137 36 Dwight Jay MD, [facility] /EPI
[2017-03-30 11:27] VITALS: BP 165/76
[2017-03-30 11:42] LABS: URINE BILIRUBIN NEGATIVE (Negative); URINE BLOOD 3+ (Negative); URINE COLOR YELLOW; URINE GLUCOSE-RANDOM* NEGATIVE (Negative); URINE KETONES NEGATIVE (Negative); URINE LEUKOCYTES-REFLEX 2+ (Negative); URINE PROTEIN (DIPSTICK) 1+ (Negative); URINE SPECIFIC GRAVITY >= 1.030 (1.003-1.035); URINE UROBILINOGEN 0.2 E.U./dl (0.2-1.0)
[2017-03-30 11:48] LABS: SQUAMOUS 4-10 Moderate /LPF (0-3)
[2017-03-30 11:49] LABS: CASTS None Seen /LPF (None Seen); CRYSTALS None Seen /LPF (None Seen)
[2017-03-30 12:11] LABS: ABSOLUTE NEUTROPHILS 5.3 thou/uL (1.4-8.2); BASOPHILS 0.8 % (0.0-2.0); EOSINOPHILS 3.8 % (0.0-3.0); HEMATOCRIT 37.7 % (37.0-47.0); HEMOGLOBIN 12.8 gm/dL (12.0-15.0); LYMPHOCYTES 18.7 % (24.0-44.0); MANUAL DIFF NO; MCH 31.9 pg (26.0-34.0); MCHC 33.8 g/dL (28.0-37.0); MCV 94.4 fL (80.0-100.0); MONOCYTES 5.9 % (1.0-8.0); PLATELET COUNT 177 thou/uL (150-400); POLYS 70.8 % (36.0-66.0); RDW 14.6 % (10.5-14.5); WBC 7.6 thou/uL (4.0-11.0)
[2017-03-30 12:19] LABS: ANION GAP 10 mmol/L (7-16); BUN 19 mg/dL (7-18); CALCIUM 10.4 mg/dL (8.5-10.1); CHLORIDE 104 mmol/L (98-107); CO2 25 mmol/L (21-32); CREATININE 1.2 mg/dL (0.6-1.0); GLUCOSE 209 mg/dL (74-106); POTASSIUM 3.6 mmol/L (3.5-5.1); SODIUM 139 mmol/L (136-145)
[2017-03-30 12:27] LABS: ALBUMIN 3.4 g/dL (3.4-5.0); ALKALINE PHOSPHATASE 86 U/L (46-116); SGOT 46 U/L (15-37); SGPT 38 U/L (30-65); TOTAL BILIRUBIN 0.4 mg/dL (<0.1-1.0); TOTAL PROTEIN 7.4 g/dL (6.4-8.2); TROPONIN-I < 0.04 ng/mL (<0.04-0.07)
[2017-03-30] MEDS ORDERED: CHLORTHALIDONE25 MG PO (13:23)
[2017-03-30] MEDS ORDERED: BYSTOLIC 5 MG5 M1 PO (13:24)
[2017-03-30] MEDS ORDERED: LEVAQUIN 500 M500 M2 PO (13:25)
[2017-03-30 14:22] VITALS: BP 146/75
[2017-03-30 14:42] VITALS: BP 154/82
[2017-03-30 15:29] VITALS: BP 170/84
[2017-03-30 19:33] VITALS: BP 147/85
[2017-03-31 03:43] VITALS: BP 146/71
[2017-03-31 05:43] LABS: CALCIUM 9.7 mg/dL (8.5-10.1); POTASSIUM 4.5 mmol/L (3.5-5.1)
[2017-03-31 08:00] VITALS: BP 148/83
[2017-03-31 16:00] VITALS: BP 142/79
[2017-03-31 19:48] VITALS: BP 151/82
[2017-04-01 05:18] VITALS: BP 113/54
[2017-04-01 06:47] LABS: HEMATOCRIT 36.1 % (37.0-47.0); HEMOGLOBIN 11.9 gm/dL (12.0-15.0); MCH 31.9 pg (26.0-34.0); MCV 96.8 fL (80.0-100.0); RBC 3.73 mil/uL (4.20-5.00); RDW 14.3 % (10.5-14.5); WBC 7.9 thou/uL (4.0-11.0)
[2017-04-01 07:03] LABS: CALCIUM 9.9 mg/dL (8.5-10.1); POTASSIUM 3.7 mmol/L (3.5-5.1); URIC ACID* 5.5 mg/dL (2.6-7.2)
[2017-04-01 08:02] VITALS: BP 144/74
[2017-04-01] MEDS ORDERED: HYDROCODONE-AP1 EAC6 PO (13:50)
[2017-04-01] MEDS ORDERED: TRAMADOL 50 MG50 MG PO (13:50)
[2017-04-01] MEDS ORDERED: ONDANSETRON HCL4 M2 PO (13:52)
[2017-04-01 16:00] VITALS: BP 162/70
[2017-04-01 16:10] VITALS: BP 144/74
== END 2017-04-01 17:00 | disposition home or self-care (01) | DRG 694 ==
LOC: ER 11:19 → EROBS 14:13 → 4N 14:13
PROVIDERS: Internal Medicine; Physician Assistant
DX: N20.0 Calculus of kidney (principal); N39.0 Urinary tract infection, site not specified; I50.30 Unspecified diastolic (congestive) heart failure; Z68.41 Body mass index [BMI] 40.0-44.9, adult; I13.0 Hypertensive heart and chronic kidney disease with heart failure and stage 1 through stage 4 chronic kidney disease, or unspecified chronic kidney disease; I48.0 Paroxysmal atrial fibrillation; H40.9 Unspecified glaucoma; L40.9 Psoriasis, unspecified; E78.00 Pure hypercholesterolemia, unspecified; K76.0 Fatty (change of) liver, not elsewhere classified; E27.9 Disorder of adrenal gland, unspecified; E66.01 Morbid (severe) obesity due to excess calories; I70.0 Atherosclerosis of aorta; K57.90 Diverticulosis of intestine, part unspecified, without perforation or abscess without bleeding; M54.30 Sciatica, unspecified side; I89.0 Lymphedema, not elsewhere classified; B37.9 Candidiasis, unspecified; N18.9 Chronic kidney disease, unspecified; E11.22 Type 2 diabetes mellitus with diabetic chronic kidney disease; E78.5 Hyperlipidemia, unspecified; B96.1 Klebsiella pneumoniae [K. pneumoniae] as the cause of diseases classified elsewhere; Z90.49 Acquired absence of other specified parts of digestive tract; Z93.6 Other artificial openings of urinary tract status; Z85.3 Personal history of malignant neoplasm of breast; Z88.1 Allergy status to other antibiotic agents; Z88.6 Allergy status to analgesic agent; Z88.0 Allergy status to penicillin
CPT/HCPCS: 10091; 27001

== ENCOUNTER 2018-11-14 17:41 | Emergency (ER) | payer OTHER, BC ==
[~2018-11-14] VITALS: Ht 152.4 cm; Wt 97.1 kg
[~2018-11-14 17:41] MED LIST changes: +BYSTOLIC 5 MG5 M1 PO; +CHLORTHALIDONE25 MG PO; +HYDROCODONE-AP1 EAC6 PO; +ONDANSETRON HCL4 M2 PO; +TRAMADOL 50 MG50 MG PO
[2018-11-14] MEDS ORDERED: CARDIZEM CD240 MG PO (20:26)
[2018-11-14 21:03] LABS: ABSOLUTE NEUTROPHILS 6.3 thou/uL (1.4-8.2); BASOPHILS 0.6 % (0.0-2.0); EOSINOPHILS 2.7 % (0.0-3.0); HEMATOCRIT 38.8 % (37.0-47.0); HEMOGLOBIN 12.6 gm/dL (12.0-15.0); LYMPHOCYTES 18.6 % (24.0-44.0); MCH 32.6 pg (26.0-34.0); MCHC 32.4 g/dL (28.0-37.0); MCV 100.5 fL (80.0-100.0); MONOCYTES 5.8 % (1.0-8.0); PLATELET COUNT 144 thou/uL (150-400); POLYS 72.3 % (36.0-66.0); RBC 3.86 mil/uL (4.20-5.00); RDW 15.6 % (10.5-14.5); WBC 8.7 thou/uL (4.0-11.0)
[2018-11-14] MEDS ORDERED: METFORMIN HCL500 MG PO (21:09)
[2018-11-14 21:35] LABS: APTT 25.1 Seconds (24.5-32.8); PROTIME 10.8 Seconds (9.3-11.4)
[2018-11-14 21:38] LABS: CALCIUM 10.1 mg/dL (8.5-10.1); CREATININE 0.9 mg/dL (0.6-1.0); POTASSIUM 3.2 mmol/L (3.5-5.1)
[2018-11-14 22:45] VITALS: BP 146/71
--- NOTE | 2018-11-16 13:27 | EKG ---
[place] [address] [facility] [place] [address] ELECTROCARDIOGRAM REPORT Name: DEONNAAGGIE [id number] ������������������ Admission: 11/14/18 ������������������ Attend Phys: Discharge: 11/14/18 ������������������ Date of : 42 Report #: [id number] ����������������������������������������������������������������� [id number] THIS REPORT FOR: //name// [facility] Test Date: 2018-11-14 Test Time: 20:55:44 Pat Name: AGGIE YING Department: Room: Gender: F Home Appliance Tech: YOKO : 1940 Requested By: Shira Sam Order Number: [id number] MD: Dwight Jay Measurements Intervals [place] Rate: 80 P: 88 AK: 54 QRS: -76 QRSD: 132 T: 34 QT: 436 QTc: 503 Interpretive Statements Sinus rhythm Short [place] interval RBBB and LAFB Compared to ECG 03/30/2017 11:37:42 No significant change was found Electronically Signed On 11-16-2018 13:27:36 CDT by Dwight Jay [email or web address] ��������������������������������������������� <ELECTRONICALLY SIGNED> ���������������������������������������� By: Dwight Jay MD, [facility] ��������������������������������������������� 11/16/18 1327 54 54 Dwight Jay MD, [facility] /EPI
== END 2018-11-14 22:45 | disposition short-term general hospital (02) ==
LOC: ER 17:41
PROVIDERS: Student in an Organized Health Care Education/Training Program
DX: S06.5X0A Traumatic subdural hemorrhage without loss of consciousness, initial encounter (principal); M25.532 Pain in left wrist; E11.9 Type 2 diabetes mellitus without complications; I48.0 Paroxysmal atrial fibrillation; I10 Essential (primary) hypertension; M48.061 Spinal stenosis, lumbar region without neurogenic claudication; E78.00 Pure hypercholesterolemia, unspecified; L40.9 Psoriasis, unspecified; Z85.3 Personal history of malignant neoplasm of breast; Z90.49 Acquired absence of other specified parts of digestive tract; Z90.12 Acquired absence of left breast and nipple; Z88.1 Allergy status to other antibiotic agents; Z88.5 Allergy status to narcotic agent; W10.9XXA Fall (on) (from) unspecified stairs and steps, initial encounter; Y92.009 Unspecified place in unspecified non-institutional (private) residence as the place of occurrence of the external cause; Y93.01 Activity, walking, marching and hiking; Y99.8 Other external cause status

== ENCOUNTER 2020-11-19 16:20 | Inpatient (IN) | payer OTHER, BC ==
[~2020-11-19] VITALS: Ht 157.5 cm; Wt 103.9 kg
--- NOTE | ~2020-11-19 | HC ---
[facility] [place] [address] CONSULTATION Name: AGGIE YING Room #: 364-P ADM IN M.R.#: [id number] Admission: 11/19/20 Attend Phys: Jack Asif MD Discharge: Date of : 41 Report #: [id number] THIS REPORT FOR: cc: Leroy Chávez MD, Stanley P. MD [place], Allen B. MD ~ DATE OF SERVICE: 11/20/2020 WOUND CARE CONSULTATION NOTE REASON FOR CONSULTATION: Lymphedema with bilateral stasis ulcers of legs with cellulitis. HISTORY OF PRESENT ILLNESS: The patient is a 80-year-old woman with diabetes mellitus type 2, obesity and chronic lymphedema, admitted for malaise and failure to thrive with possible urinary tract infection and cellulitis of the legs. She has a history of recurrent urinary tract infection, hypertension, paroxysmal atrial fibrillation, diabetes mellitus type 2 and lower extremity edema. Her legs were felt to be cellulitic with open wound. She has been started on Levaquin and Merrem IV antibiotics. The patient has had fever and chills at home. IV antibiotics, vancomycin, meropenem have been started. Wound Care is consulted. Imaging has shown arterial ultrasound of bilateral lower extremities, shows no significant plaque or stenosis within the right or left lower extremity. There is no hemodynamically significant stenosis or occlusion bilaterally. PAST MEDICAL HISTORY: Recurrent urinary tract infection, hyperlipidemia, hypertension, paroxysmal atrial fibrillation, diabetes mellitus type 2, history of lymphedema, history of left breast cancer, Lumpectomy and radiation, history of pyelonephritis. ALLERGIES: AMOXICILLIN, CODEINE, AND CEPHALEXIN. LABORATORY DATA: White blood count 11.9, albumin 2.6. Urinalysis; 16-25 white blood cells. Chest x-ray clear. MEDICATIONS: See chart. PHYSICAL EXAMINATION: GENERAL: Shows an alert, elderly woman, sitting in a chair. HEENT: Mucous membranes are moist. LUNGS: Respirations unlabored. ABDOMEN: Obese. EXTREMITIES: Examination of the lower extremities shows chronic lymphedema of both lower extremities with some pigment changes indicative of concurrent venous [facility] [address] [place] [address] CONSULTATION Name: DEONNAAGGIE SHELBIE Room #: 364-P ADM IN M.R.#: [id number] Admission: 11/19/20 Attend Phys: Jack Asif MD Discharge: Date of : 42 Report #: [id number] stasis. There are open wounds in the right and left mid pretibial area on the right measuring approximately 2.5 x 2.5 cm, on the left 1.5 x 2 cm. These are open with dry crusted drainage. There is mild surrounding redness and inflammation, indicative of mild cellulitis. IMPRESSION: 1. Obesity. 2. Immobility. 3. Mild protein-calorie malnutrition, albumin 2.6. 4. Urinary tract infection. 5. Atrial fibrillation. 6. Bilateral lymphedema. 7. Venous stasis with ulcer and inflammation of right and left leg with mild cellulitis of both legs. PLAN: Order topical Silvadene 1%, covered with Xeroform and a foam border, change twice daily. Continue IV antibiotics. As cellulitis resolved, we will consider compression of the lower extremities. Wound Care team to follow. By: [id number] Shekhar Dalton MD /nt
[2020-11-19 16:23] VITALS: BP 162/72
[2020-11-19 17:33] LABS: ABSOLUTE NEUTROPHILS 10.9 thou/uL (1.4-8.2); BASOPHILS 0.4 % (0.0-2.0); EOSINOPHILS 0.3 % (0.0-3.0); HEMATOCRIT 30.7 % (37.0-47.0); HEMOGLOBIN 10.6 gm/dL (12.0-15.0); LYMPHOCYTES 2.9 % (24.0-44.0); MCH 33.4 pg (26.0-34.0); MCHC 34.6 g/dL (28.0-37.0); MCV 96.5 fL (80.0-100.0); PLATELET COUNT 189 thou/uL (150-400); POLYS 91.4 % (36.0-66.0); RBC 3.18 mil/uL (4.20-5.00); RDW 14.9 % (10.5-14.5); WBC 11.9 thou/uL (4.0-11.0)
[2020-11-19 17:44] LABS: CREATININE 2.1 mg/dL (0.6-1.0)
[2020-11-19 17:48] LABS: ALBUMIN 2.6 g/dL (3.4-5.0); DIRECT BILIRUBIN 0.3 mg/dL (<0.1-0.2); TOTAL BILIRUBIN 0.6 mg/dL (0.2-1.0); TOTAL PROTEIN 7.2 g/dL (6.4-8.2)
[2020-11-19 18:45] LABS: URINE BILIRUBIN NEGATIVE (Negative); URINE BLOOD 2+ (Negative); URINE COLOR YELLOW; URINE GLUCOSE-RANDOM* NEGATIVE (Negative); URINE KETONES NEGATIVE (Negative); URINE PROTEIN (DIPSTICK) 1+ (Negative); URINE SPECIFIC GRAVITY 1.015 (1.005-1.035); URINE UROBILINOGEN 0.2 E.U./dl (0.2-1.0)
[2020-11-19 18:48] LABS: URINE CLARITY SL HAZY; URINE LEUKOCYTES-REFLEX 3+ (Negative); URINE NITRITE-REFLEX POSITIVE (Negative)
[2020-11-19 18:53] LABS: CASTS None Seen /LPF (None Seen); SQUAMOUS 0-3 Few /LPF (0-3)
[2020-11-19 18:55] LABS: BACTERIA-REFLEX >30 Many /HPF (None Seen); URINE RBC 3-10 Few /HPF (0-2)
[2020-11-19 18:57] LABS: CALCIUM OXALATE 0-3 Few /LPF (None Seen)
[2020-11-19 19:59] VITALS: BP 123/66
[2020-11-19] MEDS ORDERED: VALSARTAN40 MG PO (20:05)
[2020-11-19] MEDS ORDERED: AVAPRO75 MG PO (20:06)
[2020-11-19 20:52] VITALS: BP 108/56
[2020-11-19 21:53] VITALS: BP 111/59
[2020-11-19 22:13] LABS: CHOLESTEROL 103 mg/dL (<200); HDL CHOLESTEROL 17 mg/dL (>40); LDL CHOLESTEROL 53 mg/dL (<100); TC:HDL 6.1 Ratio (Not establshd); TRIGLYCERIDE 166 mg/dL (<150); VLDL 33 mg/dL (<40)
[2020-11-19 22:15] LABS: SERUM ASSESSMENT Clear
[2020-11-20 00:11] VITALS: BP 118/62
--- NOTE | 2020-11-20 00:54 | NUR ---
PT ADMITTED FROM HOME VIA EMS TO ER FOR SEPSIS, WOUND INFECTIONS LACTIC ACIDOSIS. SHE IS ALERT AND ORIENTED X4. VSS AFEBRILE. UNLABORED ON RA. DENIED PAIN. WOUNDS TO LEGS, RIGHT BUTTOCK, SACRAL, POSTERIOR BACK/SHOULDER AND LEFT BREAST TAKEN. SR WITH 1'AVB, BBB AND PACS NOTED ON MONITOR. ORIENTED PT TO RM , FALL PRECAUTIONS, PHONE TV, CALL LIGHT, ETC. NS AT 125 ML /HR INFUSING RIGHT HAND. NO S/S DITRESS PRESENTLY. WILL CONTINUE TO MONITOR PT FOR CHANGES.
[2020-11-20 02:58] LABS: CALCIUM 9.1 mg/dL (8.5-10.1); CREATININE 1.8 mg/dL (0.6-1.0); POTASSIUM 3.7 mmol/L (3.5-5.1)
[2020-11-20 03:14] LABS: HEMATOCRIT 28.6 % (37.0-47.0); HEMOGLOBIN 9.6 gm/dL (12.0-15.0); MCH 32.6 pg (26.0-34.0); MCHC 33.4 g/dL (28.0-37.0); MCV 97.5 fL (80.0-100.0); RBC 2.94 mil/uL (4.20-5.00); RDW 14.8 % (10.5-14.5); WBC 7.7 thou/uL (4.0-11.0)
[2020-11-20 03:31] VITALS: BP 130/60
--- NOTE | 2020-11-20 03:48 | NUR ---
PT RESTING QUIETLY PRESENTLY.NO C/O PAIN. NO SOA PRESENTLY. VSS AFEBRILE.
[2020-11-20 05:36] LABS: GLYCOHEMOGLOBIN (HGB A1C) 6.9 % (4.8-5.6)
--- NOTE | 2020-11-20 06:30 | NUR ---
PT RESTING QUIETLY THIS AM. NO C/O PAIN. NO S/S DISTRESS.
[2020-11-20 07:53] VITALS: BP 123/57
--- NOTE | 2020-11-20 09:33 | HC ---
[facility] [place] [address] CONSULTATION Name: AGGIE YING Room #: 364-P ADM IN M.Jermaine.#: [id number] Admission: 11/19/20 Attend Phys: Jack Asif MD Discharge: Date of : 42 Report #: [id number] THIS REPORT FOR: cc: Leroy Chávez MD, Stanley P. MD Barry, Joseph W. MD ~ DATE OF SERVICE: 11/20/2020 INFECTIOUS DISEASE CONSULTATION ATTENDING PHYSICIAN: Dr. Asif. REASON FOR EVALUATION: Complicated urinary tract infection, apparently recurrence, also has bilateral pretibial ulcers with suspected complicating secondary bacterial infection. HISTORY OF PRESENT ILLNESS: Chart reviewed, patient examined. This is a 80-year-old with extensive medical history, has diabetes mellitus type 2, has bilateral lower extremity chronic lymphedema, probable venous stasis insufficiency with dermatitis and ulcers as well, previous breast cancer, who was referred to the Emergency Room with concerns about the progressive inflammation associated with the wounds as well as generalized weakness. She notes normally has taken care of by family member. She had been out of town and she states she was not adequately able to take care of her needs. She noted some low-grade temperature elevations and chills. Denies significant pulmonary-related complaints. Appetite has been somewhat diminished, although access to food has been perhaps limited as well and again underwent evaluation for additional infectious causes. There is no acute process involving her seen on chest x-ray. Lactic acid was 3.0. Urinalysis did show moderate pyuria with marked bacteriuria. Lactic acid was repeated and it was then 1.8, elevated creatinine of 1.8. Blood cultures collected at this time are sterile thus far. Urine culture is in progress. Due to tenuous nature of situation, she was admitted. She is not requiring supplemental oxygen at this point. She is receiving fluids. We will start empiric therapy with meropenem and levofloxacin. She has not had any recent previous cultures, although reportedly had E. coli in her urine that was treated with Bactrim recently. ALLERGIES: CODEINE, CEPHALEXIN, AMOXICILLIN. CURRENT MEDICATIONS: Include levofloxacin, atorvastatin, enoxaparin, famotidine, labetalol, diltiazem CD, multivitamin, meropenem, aspirin, insulin lispro sliding scale, p.r.n. analgesics and antiemetics. PAST MEDICAL HISTORY: Diabetes mellitus type 2, insulin requiring, paroxysmal atrial fibrillation, chronic lower extremity lymphedema with pretibial ulcers, [address] [address] CONSULTATION Name: AGGIE YING Room #: 364-P [facility] IN [facility]#: [id number] Admission: 11/19/20 Attend Phys: Jack Asif MD Discharge: Date of : 42 Report #: [id number] glaucoma, history of diverticulitis, hypertension, psoriasis, peripheral vascular disease, bladder dysfunction. Previous diagnosis of renal lithiasis with lithotripsy, has had a previous ureteral stent. SOCIAL HISTORY: Nonsmoker, no ethanol, no illicit drug use. FAMILY HISTORY: Noncontributory. REVIEW OF SYSTEMS: Otherwise unremarkable with exception of the above. PHYSICAL EXAMINATION: GENERAL: She appears chronically ill, undernourished. She is anxious, appears fearful, chronically ill appearing and undernourished. She is not overtly toxic. VITAL SIGNS: Temperature 97.7, pulse 72, respirations 18, blood pressure 123/57. SKIN: Warm, dry. I do not appreciate any rashes. HEENT: Normocephalic. Extraocular muscles are intact. NECK: Supple. LUNGS: Diminished breath sounds. Few scattered crackles at the bases. HEART: Regular, has a soft systolic murmur. ABDOMEN: Obese, distended, somewhat firm, nontender. EXTREMITIES: No cyanosis. Bilateral lower extremities have somewhat necrotic-appearing ulcers in the mid pretibial sites. There is a moderate degree of marginal erythema and inflammatory signs. Generally, dry, almost desiccated. LABORATORY AND X-RAY DATA: Blood cultures sterile thus far. Hemoglobin A1c of 6.9. CBC: White count of 7.7, H and H 9.6 and 28.6, and platelets of 131. Electrolytes: Sodium 137, potassium 3.7, chloride 103, bicarbonate 24, anion gap of 10, BUN and creatinine 44 and 1.8, estimated GFR of 27. Lactic acid is 1.8. Urinalysis, 6-25 white cells, greater than 30 bacteria. Chest x-ray, no acute process. ASSESSMENT AND PLAN: Bilateral lower extremity pretibial ulcerations appear to have a degree of inflammation and necrosis. Noted wound care to be involved will likely need aggressive compression, although we will check arterial Dopplers as well. First, we will continue broad-spectrum empiric therapy. Does have hypersensitivity and perhaps impact our approach. Secondly, she has a complicated urinary tract infection, suspect there is some dysfunction, perhaps some stasis due to decreased p.o. intake of fluid. We will await those culture results as well. She remains tenuous. Monitor expectantly. Continue supportive care. [facility] [address] [place] [address] CONSULTATION Name: AGGIE YING SHELBIE Room #: 364-P ADM IN M.R.#: [id number] Admission: 11/19/20 Attend Phys: Jack Asif MD Discharge: Date of : 41 Report #: [id number] Thank you. <ELECTRONICALLY SIGNED> By: John Pabon MD 11/20/20 0933 [id number] John Pabon MD /nt
[2020-11-20 11:26] VITALS: BP 138/58
[2020-11-20 15:54] VITALS: BP 111/46
--- NOTE | 2020-11-20 19:44 | NUR ---
PATIENT RESTING IN CHAIR AT THIS TIME. SHE HAS BEEN INCONTINENT OF BLADDER. EXTERNAL CATH AT THIS TIME. WILL CONT WITH PLAN OF CARE.
[2020-11-20 19:50] VITALS: BP 132/94
[2020-11-21 03:30] VITALS: BP 138/6; BP 138/62
--- NOTE | 2020-11-21 07:04 | NUR ---
PT MAKING SLOW PROGRESS TOWARDS GOALS. PT UP TO BSC SEVERAL TIMES THROUGHOUT THE NIGHT. HAS APPROPRIATE STRENGTH AND STAMINA TO COMPLETE THE TASK SAFELY. CONTINUE TO MONITOR.
[2020-11-21 07:53] VITALS: BP 144/70
[2020-11-21 11:54] VITALS: BP 152/78
--- NOTE | 2020-11-21 12:03 | NUR ---
Assess due to consult received for poor intake. Admit with sepsis, cellulitis, lower extremity lymphedema, venous stasis ulcer. Pt reports appetite is now good. States usually lives with son who cooks for her and he had been out town for four days so not eating "like I should." Has access to alternative menu, eating variety of foods. No reported wt loss past year. Low nutrition risk
--- NOTE | 2020-11-21 15:38 | NUR ---
INITIAL ASSESSMENT: Received consult for discharge planning. SW reviewed chart and spoke with nursing and attending physician. Pt was admitted from home due to sepsis/wound infection. Pt is on IV abx. Therapy and [facility] consulted to evaluate pt for discharge needs. SW met with pt at bedside. Introduced role of SW. Pt is alert/orientated z 4. Pt reports she lives at home with her son. Prior to admission, pt was independent with ADLs. Pt has a cane and walker to use. Pt lives in a 2-story home, but all of her needs are met on the ground level. Pt has used [facility] in the past for HH. Pt's PCP is Dr. Leroy Chávez. [facility] consult pending. SW is following to assist as needed with discharge planning.
[2020-11-21 16:09] VITALS: BP 145/68
[2020-11-21 20:15] VITALS: BP 136/66
[2020-11-22 03:28] VITALS: BP 130/64
--- NOTE | 2020-11-22 06:29 | NUR ---
VSS OVERNIGHT. PT SLEPT IN BED FOR ABOUT 3 HOURS. PLACED 4" TUBESOCK ON BLLE. IVF GTT AND IVPB ANTIBIOTICS PER POC. PT UP TO BSC X1 ASSIST WITH WALKER. ONLY COMPLAINT IS SORE BUTTOCK, BARRIER CREAM APPLIED.
[2020-11-22 07:56] VITALS: BP 162/83
--- NOTE | 2020-11-22 16:15 | NUR ---
DISCHARGE NOTE: HIEU reviewed chart and spoke with nursing and attending physician. Pt is medically stable for discharge today. [facility] consulted and can accept pt today pending COVID test results. HIEU met with pt at bedside to discuss [facility]'s acceptance and discharge. Pt is aware and agreeable with discharge plan. Pt is aware that she will need a COVID test today. COVID test to be ordered this afternoon. Results will be back later this evening. [facility] is able to accept pt when results are available. HIEU notified pt's nurse and attending physician. Finalized discharge orders/summary need to be completed. Rehab CM to follow and assist as needed with discharge planning.
[2020-11-22 16:39] VITALS: BP 154/77
[2020-11-22 19:51] VITALS: BP 158/94
--- NOTE | 2020-11-22 20:10 | NUR ---
PT IS MUCH MORE WEAK TODAY THAN YESTERDAY. SHE DID NOT SLEEP LAST NIGHT AND HAS BEEN TO COMMODE ABOUT EVERY 30 MIN THIS SHIFT. IT IS INCREASINGLY DIFFICULT FOR HER TO GET OUT OF CHAIR. SHE DOES DRIBBLE AT TIMES AND WAS SCANNED WITH NO REISIDUAL NOTED...
--- NOTE | 2020-11-22 21:06 | NUR ---
COVID PCR NEGATIVE. ALL PARTIES NOTIFIED.
[2020-11-23 04:22] VITALS: BP 133/53
[2020-11-23 07:31] VITALS: BP 132/54
[2020-11-23 08:37] VITALS: BP 132/54
[2020-11-23] MEDS ORDERED: HYDROCORTISONE30 G9 RECTAL (13:56)
--- NOTE | 2020-11-23 14:12 | NUR ---
Note Given: Y Facility List Provided:Y Facility Carlos A: None chosen at this time Georgia Ochoa NP discussed BPCI with this pt 11/21/2020
--- NOTE | 2020-11-23 14:23 | NUR ---
Assumed care at shift change. Pt a/o x 4, forgetful at times. Overall, progressing towards POC goals. Discharging to [facility] this afternoon. Tele removed. Pt up x 1 with walker today from chair to bed. Steady gait. Wound cares and pictures complete prior to d/c. Report given to CATHERINE Sebastian on Rehab unit.
--- NOTE | 2020-11-23 15:57 | NUR ---
DISCHARGE NOTE: SW reviewed chart and spoke with nursing and attending physician. Pt is medically stable for discharge to [facility] today. Discharge yesterday was cancelled. Discharge orders/summary finalized. Pt had negative COVID test. SW met with pt at bedside to discuss discharge plan. Pt is aware and agreeable with plan. Rehab CM to follow and assist as needed with discharge planning.
== END 2020-11-23 14:15 | DRG 871 ==
LOC: ER 16:20 → EROBS 18:54 → 3W 18:54
PROVIDERS: Emergency Medicine; Nurse Practitioner Family; ADMIT Internal Medicine; ATTEND Internal Medicine
DX: A41.9 Sepsis, unspecified organism (principal); L89.313 Pressure ulcer of right buttock, stage 3; G93.41 Metabolic encephalopathy; E44.0 Moderate protein-calorie malnutrition; N39.0 Urinary tract infection, site not specified; L97.829 Non-pressure chronic ulcer of other part of left lower leg with unspecified severity; L97.819 Non-pressure chronic ulcer of other part of right lower leg with unspecified severity; L03.116 Cellulitis of left lower limb; L03.115 Cellulitis of right lower limb; N17.9 Acute kidney failure, unspecified; Z68.41 Body mass index [BMI] 40.0-44.9, adult; Z20.822 Contact with and (suspected) exposure to COVID-19; I48.0 Paroxysmal atrial fibrillation; I10 Essential (primary) hypertension; I25.10 Atherosclerotic heart disease of native coronary artery without angina pectoris; E78.00 Pure hypercholesterolemia, unspecified; R65.20 Severe sepsis without septic shock; E66.9 Obesity, unspecified; I87.8 Other specified disorders of veins; I89.0 Lymphedema, not elsewhere classified; E78.5 Hyperlipidemia, unspecified; S81.802A Unspecified open wound, left lower leg, initial encounter; S81.801A Unspecified open wound, right lower leg, initial encounter; R53.81 Other malaise; M48.00 Spinal stenosis, site unspecified; G89.29 Other chronic pain; N20.0 Calculus of kidney; M54.40 Lumbago with sciatica, unspecified side; S30.0XXA Contusion of lower back and pelvis, initial encounter; S40.212A Abrasion of left shoulder, initial encounter; G47.00 Insomnia, unspecified; L30.4 Erythema intertrigo; Z79.4 Long term (current) use of insulin; Z85.3 Personal history of malignant neoplasm of breast; Z92.3 Personal history of irradiation; Z90.49 Acquired absence of other specified parts of digestive tract; Z93.6 Other artificial openings of urinary tract status; Z79.82 Long term (current) use of aspirin; Z79.899 Other long term (current) drug therapy; Z88.6 Allergy status to analgesic agent; Z88.1 Allergy status to other antibiotic agents; Z88.8 Allergy status to other drugs, medicaments and biological substances; X58.XXXA Exposure to other specified factors, initial encounter; Y93.89 Activity, other specified; Y92.89 Other specified places as the place of occurrence of the external cause; Y99.8 Other external cause status
CPT/HCPCS: 10080; 10879

== ENCOUNTER 2020-11-22 13:26 | Inpatient (IN) | payer OTHER, BC ==
[~2020-11-22] VITALS: Ht 157.5 cm; Wt 103.2 kg
[~2020-11-22 13:26] MED LIST changes: +AVAPRO75 MG PO; +PRAVACHOL 20 MG20 M1 PO; -PRAVACHOL20 MG PO; +VALSARTAN40 MG PO
[2020-11-23] MEDS ORDERED: HYDROCORTISONE30 G9 RECTAL (13:56)
--- NOTE | 2020-11-23 16:12 | NUR ---
1430 ADMITTED TO ROOM 509 PATIENT IS ALERT AND ORIENTEDX4. PATIENT IS FORGETFUL. LUNGS ARE CLEAR, ABD IS SOFT WITH BSX4. PATIENT HAS URGENCY. USE WICK AT NOC. PATIENT HAS WOUNDS TO HER L.E. BILATERALLY. WOUND ON HER COCCYX OPEN TO AIR AND Z GUARD APPLIED, PATIENT HAS S.L. IN HER LEFT FORARM. FALL AND SAFETY PROTOCOLS IN PLACE. DENIES PAIN AT THIS TIME. PT/OT/ST EVALS TO BE DONE IN AM. WILL CONTINUE TO MONITER.
[2020-11-23 19:20] VITALS: BP 125/54
--- NOTE | 2020-11-24 00:40 | NUR ---
PT ASSESSMENT COMPLETED AND VSS. MEDS GIVEN ORDERED AND WELL TOLERATED. FALL PRECAUTIONS IN PLACE. UP TO THE BATHROOM WITH A WALKER/GAIT/ASST. SOME BLEEDING WITH STOOL THIS EVENING FROM A HEMMOROID. DR AWARE. VOIDING MODERATE AMOUNT OF YELLOW URINE. PVR ONLY 68 THIS EVENING. FEMALE EXTERNAL CATH IN PLACE. SLEEPING IN CHAIR. NOCTURNAL DESAT STUDY THIS EVENING. WILL CONTINUE TO MONITOR FREQUENTLY. PLEASANT PATIENT.
[2020-11-24 06:02] LABS: HEMATOCRIT 27.9 % (37.0-47.0); HEMOGLOBIN 9.2 gm/dL (12.0-15.0); MCH 32.4 pg (26.0-34.0); MCHC 33.1 g/dL (28.0-37.0); RBC 2.85 mil/uL (4.20-5.00); WBC 6.7 thou/uL (4.0-11.0)
[2020-11-24 06:25] LABS: CREATININE 1.1 mg/dL (0.6-1.0); POTASSIUM 3.9 mmol/L (3.5-5.1)
--- NOTE | 2020-11-24 07:43 | NUR ---
chart review. new to acute rehab. unable to visit with pt rt resting before breakfast and working with therapy. noted she lives with her son in 2 story home and everything is on ground level for her. no stairs she has to do. has cane and walker. [facility] in the past for [facility]. pcp dr monge. cont with wound care and iv abx. will cont following as needed for dc needs.
[2020-11-24 08:00] VITALS: BP 127/55
--- NOTE | 2020-11-24 12:10 | NUR ---
RN MANUALLY DISIMPACTED LARGE AMOUNT OF HARD DARK STOOL, AND NOTED EXTERNAL HEMORROIDS, WELL BLOODY DRAINAGE FROM INTERNAL. NOTED WOUND AT RT BUTTOCK AND WITHIN GLUTEAL CLEFT, AND SKIN PROTECTANT APPLIED BY OT TO THESE AREAS. WOUND CARE TEAM IN TO SEE PT WHILE DOING ADL'S WITH OT. RN TO REQUEST ORDERS FOR HEMORRHOID TREATMENT.
--- NOTE | 2020-11-24 13:31 | NUR ---
ASSUMED CARE AT 0700. DID NOT SLEEP WELL LAST NIGHT. ALERT AND ORIENTATED X 4. DENIES ANY PAIN OR DISCOMFORT, DID REPORT HAVING DISCOMFORT TO HER R THIGH LAST NOC. ORDERS RECEIVED FOR MELATONIN AND TYLENOL PRN. LUNGS SOUND CLEAR, ABDOMEN IS DISTENDED, COMPLAINED OF IMPACTED STOOLS WITH CONSTIPATION. STOOL DIGITALLY REMOVED AND HAD A LARGE BM FOLLOWED BY SOFT STOOLS. RECEIVED ORDERS FOR STOOL REGIMEN. SEEN BY UROLOGY PA, ORDERED FOR CT ABDOMEN TO LOCATE FOR KIDNEY STONES, PT DENIES ANY HEMATURIA BUT DOES REPORT INT/EXT HEMORRHOIDS. Z GUARD APPLIED TO SACRAL. PER WOUND CARE, TO USE INTERDRY TO L BREAST INSTEAD OF NYSTATIN POWDER, WOUND CARE DONE TO BLE ORDERED. TUBI ORNAMENTER APPLIED FROM TOES TO KNEES. PARTICIPATED WITH THERAPY, BOTH LE ELEVATED IN THE WC. LYMPHEDEMA RX POSSIBLY NEXT WEEK THE WOUND CARE WANTS THE BLE WOUND TO HEAL FIRST.
[2020-11-24 20:00] VITALS: BP 149/50
--- NOTE | 2020-11-24 23:54 | NUR ---
PT ASSESSMENT COMPLETED AND VSS. MEDS GIVEN ORDERED AND WELL TOLERATED. FALL PRECAUTIONS IN PLACE. UP TO THE BATHROOM WITH ONE ASST/GAIT/WALKER. PT HAD A VERY LARGE LOOSE STOOL THIS EVENING. REPOSITIONED IN BED USING PILLOWS FOR COMFORT. HEMMOROID MEDICATION GIVEN AND CREAM APPLIED TO WOUNDS ON BOTTOM. DSGS ON SILVESTRE LOWER LEGS DRY AND INTACT. SLEEPING AND PAIN MEDICATION WORKING WELL. PT ON A NOCTURNAL DESAT STUDY THIS EVENING. PT SLEEPING WELL AT THIS TIME. WILL CONTINUE TO MONITOR FREQUENTLY.
[2020-11-25 07:15] VITALS: BP 118/47
--- NOTE | 2020-11-25 11:30 | NUR ---
ASSUMED CARE AT 0700. SLEPT FAIRLY WELL WITH MELATONIN. ALERT AND ORIENTATED X 3. PAIN IS STABLE WITH VALENTE TYLENOL. HAD A COUPLE OF LARGE LOOSE BM TODAY. Z GUARD APPLIED TO SACRAL WOUND. UP WITH MIN ASSIST TO BATHROOM USING THE WALKER. DIURESING ADEQ. APPETITE FAIRLY GOOD. WOUND CARE DONE TO BLE, GIVEN IV ANTIBIOTICS SCHEDULED. BLE ELEVATED, TUBI GEAR SETTER APPLIED. PARTICIPATING WITH THERAPY, CONT TO MONITOR.
--- NOTE | 2020-11-25 13:19 | NUR ---
PT IS CONSTANTLY INCONT THROUGHOUT THE NIGHT AND A FEMALE EXTERNAL CATHETER HAS BEEN UTILIZED FOR WOUND PREVENTION. IRFPAI HAS BEEN UPDATED WITH THIS INFORMATION
[2020-11-25 19:15] VITALS: BP 150/73
--- NOTE | 2020-11-26 02:35 | NUR ---
UP 4 TIMES IN THE EVENING FOR SMALL LOOSE STOOL AND URINE. PREPARATION H SUPPOSITORY INSERTED, PERIANAL CARE WITH WIPES, Z-GUARD BETWEEN BUTTOCKS AND PEA-SIZED AREA OF BREAKDOWN TO MEDIAL RIGHT BUTTOCK. EXTERNAL CATHETER APPLIED ONCE BACK IN RECLINER FOR THE NIGHT, LEGS ELEVATED ON PILLOWS WITH TUBIGRIPS REMOVED FOR OVERNIGHT.
--- NOTE | 2020-11-26 10:50 | NUR ---
ASSUMED CARE AT 0700. PATIENT IS ALERT AND ORIENTED X3, BUT FORGETFUL. PATIENT LE'S, SANITARY LANDFILL SUPERVISOR ARE EQUAL. LUNGS ARE CLEAR AND DEMINISHED. ABD IS SOFT WITH BSX4. UP TO THE BATHROOM WITH ASSIST OF 1 STAFF AND GAIT BELT TO VOID AND HAVE BM. PATIENT HAS HEMMORROIDS INTERNAL/EXTERNAL WITH OCCASIONAL BLOOD ON TOILET TISSUE. UP IN THE CHAIR FOR MEALS. WOUNDS TO SHINS CHANGED ACCORDING TO PROTOCOLS. Z-GUARD APPLIED TO COCCYX AREA. S.L. IN LEFT HAND AND FORARM. FALL AND SAFETY PROTOCOLS IN PLACE. DENIES PAIN AT THIS TIME. WILL CONTINUE TO MONITER.
[2020-11-26 21:21] VITALS: BP 147/85
--- NOTE | 2020-11-26 23:39 | NUR ---
PT ALERT AND ORIENTED X 4. AMB TO BR WITH WALKER AND ASSIST X 1. EXTERNAL FEMALE CATHETER PLACED AT HS. NOLASCO DRESSINGS C/D/I. PT DENIES PAIN OR DISCOMFORT. PT SLEEPING IN RECLINER. CHAIR ALARM ON FOR SAFETY. PT APPEARS TO BE SLEEPING ON HOURLY ROUNDS.
[2020-11-27 07:15] VITALS: BP 101/52
--- NOTE | 2020-11-27 11:35 | NUR ---
ASSUMED CARE AT 0700. SLEPT WELL IN THE RECLINER. PT EDUCATED ABOUT HER SLEEPING IN THE SPECIALTY BED TO HELP WITH HER WOUND. ALERT AND ORIENTATED X 3. PAIN IS MANAGEABLE AND IS ON VALENTE TYLENOL. STOOL REGIMEN HELD, HAD COUPLE OF LOOSE STOOL TODAY. SACRAL WOUND CARE DONE AND Z GUARD APPLIED. APPETITE FAIR WOUND CARE DONE AND BLE EDEMA TUBIGRIPS APPLIED AND LEGS ELEVATED. ACCU CHECKS DONE AND MEDS GIVEN. NO SIGNS OF HYPOGLYCEMIA. WALKED WITH STAFF THIS MORNING. MIN ASSIST WITH WALKER.
[2020-11-27 20:00] VITALS: BP 130/52
--- NOTE | 2020-11-28 00:41 | NUR ---
PT ALERT AND ORIENTED X 4. AMB TO BR WITH WALKER AND ASSIST X 1. INCONT OF URINE AT START OF SHIFT. EXTERNAL FEMALE CATHETER PLACED AT HS. PT C/O PAIN IN BUTTOCKS. SCHEDULED TYLENOL GIVEN AT HS. MELATONIN ALSO GIVEN AT HS FOR SLEEP. Z GUARD TO COCCYX. BED ALARM ON FOR SAFETY. PT APPEARS TO BE SLEEPING ON HOURLY ROUNDS.
[2020-11-28 08:00] VITALS: BP 133/51
--- NOTE | 2020-11-28 08:30 | NUR ---
PT SITTING IN RECLINER AT THIS TIME FOR BREAKFAST. PT RECIEVING TYLENOL SCHEDUALED FOR PAIN TO LOWER EXT. PT HAS LOWER EXT WRAPPED WITH TUBEX CLOTH. PT UP WITH WALKER TO BR X1 ASSIST. 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 PT ALERT TO SELF AND SITUATION AND PLACE. PT TAKES MEDS WHOLE WITH NO ISSUES.
--- NOTE | 2020-11-28 18:00 | NUR ---
PT SON HERE TO SEE HER AND WANTED TO KNOW WHAT THE PLAN IS FOR TODAY. HE THOUGHT HE WOULD BE CALLED TODAY, TOLD HIM THAT THERE IS A TEAM MEETING TOMMORROW AND FAMILY IS NOTIFIED OF CARE AND TREATMENT. HE UNDERSTOOD.
[2020-11-28 20:00] VITALS: BP 116/46
--- NOTE | 2020-11-29 00:48 | NUR ---
ASSUMED PT CARE AT 1900.PT C/O PAIN TO HER BUTTOCK,MANAGED WITH MED.PT REF HER MIRALAX AND SENNA,HAD A LOOSE STOOL AT HS.BLE LYMPHEDEMA NOTED.TUBIGRIP IN PLACE.Z GUARD TO HER BUTTOCK.INTERDRY TO HER PANNUS DUE TO YEAST.PT ABLE TO MAKE HER NEEDS KNOWN.PT PROGRESSING SLOWLY TOWARDS DC GOALS.CALL LIGHT WITHIN REACH.
[2020-11-29 05:39] LABS: ABSOLUTE NEUTROPHILS 4.7 thou/uL (1.4-8.2); BASOPHILS 0.8 % (0.0-2.0); EOSINOPHILS 4.8 % (0.0-3.0); HEMATOCRIT 21.7 % (37.0-47.0); HEMOGLOBIN 7.2 gm/dL (12.0-15.0); LYMPHOCYTES 29.9 % (24.0-44.0); MCH 32.9 pg (26.0-34.0); MCHC 33.3 g/dL (28.0-37.0); MONOCYTES 5.8 % (1.0-8.0); PLATELET COUNT 198 thou/uL (150-400); POLYS 58.7 % (36.0-66.0); RBC 2.19 mil/uL (4.20-5.00); RDW 15.8 % (10.5-14.5)
[2020-11-29 05:57] LABS: CALCIUM 9.3 mg/dL (8.5-10.1); CREATININE 1.2 mg/dL (0.6-1.0); MAGNESIUM 1.9 mg/dL (1.8-2.4); POTASSIUM 3.8 mmol/L (3.5-5.1)
[2020-11-29 07:15] VITALS: BP 136/59
--- NOTE | 2020-11-29 10:04 | NUR ---
ASSUMED CARE AT 0700. SLEPT WELL IN HER RECLINER. PT PREFERS TO SLEEP IN THE CHAIR DUE TO COMFORT DESPITE EDUCATING ABOUT THE AIR LOSS MATTRESS AND WOUND HEALING. DENIES ANY PAIN. ACCUCHECKS DONE AND ORAL MEDS GIVEN. APPETITE GOOD. REFUSED HER STOOL REGIMEN TODAY. HAD A LAST BM 11/29. LUNGS CLEAR, ABDOMEN SOFT. Z GUARD APPLIED TO SACRAL. PT SITS ON WAFFLE CUSHION. BLE EDEMA WITH CALF WOUND HEALING WELL. NO MORE TREATMENT PER WOUND CARE, OK FOR LYMPHEDEMA TREATMENT AND TO PUT TONI HOSE. BOTH LE ELEVATED. PARTICIPATING WITH THERAPY, PROGRESSING TOWARDS GOAL. CONT TO MONITOR.
--- NOTE | 2020-11-29 13:41 | NUR ---
team meeting, recommendation: iv abx completed and on po abx. mild/mod/sever, cog/memory. noted [facility] repeats [facility] stories[facility] ( pt, ot, st, and nursing). outpt neuro pysch. no dme.
[2020-11-29 19:36] VITALS: BP 143/52
--- NOTE | 2020-11-30 00:58 | NUR ---
PT ALERT AND ORIENTED X 4. AMB TO BR WITH WALKER AND ASSIST X 1. HAS HAD 2 LOOSE BLACK STOOLS TONIGHT. STOOL FOR OCCULT BLOOD POSITIVE. CALLED TO WESLY FERGUSON NP WITH ORDERS RECEIVED. SENA WRAPS INTACT TO BILAT LE'S. PT DENIES PAIN OR DISCOMFORT. CHAIR ALARM ON FOR SAFETY. PT CHECKED ON HOURLY ROUNDS.
[2020-11-30 06:03] LABS: MCH 34.8 pg (26.0-34.0); MCHC 35.1 g/dL (28.0-37.0); MCV 99.1 fL (80.0-100.0); RDW 15.9 % (10.5-14.5); WBC 7.6 thou/uL (4.0-11.0)
[2020-11-30 06:19] LABS: HEMATOCRIT 19.8 % (37.0-47.0)
--- NOTE | 2020-11-30 06:32 | NUR ---
HGB 7.0, HCT 19.8 THIS MORNING. CALLED TO WESLY FERGUSON NP. SHE STATED SHE WOULD REPORT TO DAY DOCK LOADER BEATRICE THIS MORNING.
[2020-11-30 07:15] VITALS: BP 135/71
--- NOTE | 2020-11-30 08:33 | NUR ---
PT SITTING IN RECLINER CHAIR. PT STATED SHE JUST FELT TIRED. PT DENIES ANY SOB. ASSISTED PT TO TOILET AND PT HAD BLACK GRITTY LOOSE STOOL. PT WAS ABLE TO PULL UP PANTS AND BRIEF ON HER OWN. PT SAT DOWN IN RECLINER. PT TOOK MEDS WITH ORANGE JUICE. PT LUNGS CLEAR. PT DIDN'T HAVE ANY SIGNS OF SOB WITH AMBULATION TO BATHROOM VIA WALKER.
[2020-11-30 11:27] LABS: CALCIUM 9.8 mg/dL (8.5-10.1); CREATININE 1.4 mg/dL (0.6-1.0)
--- NOTE | 2020-11-30 14:45 | NUR ---
passed on that dcp, 1st home then possible if needed with in 30 days skilled. cm received message from son parth antoine who had question and wants information about dcp, medical and private duty in home? education that would pass on medical question to BIOLOGY LABORATORY ASSISTANT to address with him and cm will provide information about pd. will cont following as needed for dc needs.
--- NOTE | 2020-11-30 16:40 | NUR ---
PT HAS HAD AROUND 4 STOOLS THIS SHIFT THAT IS DARK GREEN IN COLOR AND GRITTY. BARRIER CREAM APPLIED TO BUTTOCKS. PT STATED HE BUTTOCKS IS SORE. GI SEEN PT TODAY AND SHE IS SCHEDUALED FOR EGD/COLONOSCOPY SATURDAY. HER SON WAS HERE AND ASKED THE PATIENT TO TELL HER SON WHAT WAS HAPPENING SATURDAY, PT UNABLE TO RECALL. NOTICED PT SAYING SAME THINGS OVER TO THIS FURNITURE REMOVALIST. PT STATED SHE USED TO WORK HERE FOR 20 YEARS. IV TEAM NOTIFED ABOUT NEEDING AN IV FOR PROCEDURE DUE TO PT IS A HARD STICK. THE IV TEAM STATED FIRST THING IN AM THEY WILL ATTEMPT IV ACCESS.
[2020-11-30 19:23] VITALS: BP 109/54
--- NOTE | 2020-11-30 23:43 | NUR ---
PT ALERT AND ORIENTED X 4. AMB TO BR WITH WALKER AND ASSIST X 1. HAS HAD ONE LOOSE GREEN STOOL SO FAR TONIGHT. SENA WRAPS INTACT TO BILAT LE'S. PT C/O PAIN IN BACK. SCHEDULED TYLENOL GIVEN AT HS. Z GUARD TO BUTTOCKS PRN. PT SLEEPING IN RECLINER. CHAIR ALARM ON FOR SAFETY. PT APPEARS TO BE SLEEPING ON HOURLY ROUNDS.
[2020-12-01 05:22] LABS: MCH 32.6 pg (26.0-34.0); MCHC 32.6 g/dL (28.0-37.0); MCV 100.1 fL (80.0-100.0); RBC 1.97 mil/uL (4.20-5.00); RDW 15.9 % (10.5-14.5); WBC 7.2 thou/uL (4.0-11.0)
[2020-12-01 05:57] LABS: HEMATOCRIT 19.7 % (37.0-47.0); HEMOGLOBIN 6.4 gm/dL (12.0-15.0)
--- NOTE | 2020-12-01 06:13 | NUR ---
HGB 6.4, HCT 19.7 THIS MORNING. CALLED TO WESLY FERGUSON NP. SHE STATED SHE WOULD PASS IT ON TO DIANA BARRON ON DAY SHIFT.
[2020-12-01 08:00] VITALS: BP 126/55
--- NOTE | 2020-12-01 11:30 | NUR ---
ASSUMED CARE AT 0700. SLEPT OFF AND ON IN THE RECLINER, REPORTED SLEPT BETTER IN THE RECLINER. ALERT AND ORIENTATED X 3 , FORGETFUL AT TIMES. PALE AND LETHARGY. DENIES ANY SHORT OF AIR, LIGHTHEADEDNESS OR DIZZINESS. HGB 6.4, CONSENT FOR BLOOD TRANSFUSION DONE. PT REPORTED UNDERSTANDING AND NOT SURE IF SHE RECEIVED BLOOD TRANSFUSION IN THE PAST. TYPE AND CROSS DONE. VS DONE PER PROTOCOL. BLOOD TRANSFUSION STARTED AT 1210 WITH HOURLY VS AND COMPLETED AT 1425. NO REACTION NOTED. PT ABLE TO DO A 30 MINUTES PHY THERAPY WITH NO SIGN OF DISTRESS. PT HAD SEVERAL LOOSE BM AND ASSISTED TO THE BSC. AFTER BLOOD COMPLETION, PT STARTED ON IV NS @ 80ML/HR. PT HAS BEEN ON CLEAR LIQUID SINCE BREAKFAST TODAY. BOWEL PREP STARTED AT 1630. PT REPORTED HAVING DIFFICULTY WITH THE TASTE. PT EDUCATED ON TRYING TO FINISH THE CONTENT BY MIDNIGHT AND IF THE BOWEL ARE NOT PREP PROPERLY TILL CLEAR, THE EGD/COLONOSCOPY TEST MIGHT BE DELAYED. ON COMING CATHERINE TENA INFORMED ABOUT HAVING PT FOLLOW UP WITH BOWEL PREP AND TO ORDER FOR CBC POST TRANSFUSION TOMORROW.
[2020-12-01 11:59] VITALS: BP 116/51; BP 130/59; BP 151/71
[2020-12-01 19:10] VITALS: BP 117/55
--- NOTE | 2020-12-02 04:03 | NUR ---
PT ASSESSMENT COMPLETED AND VSS. MEDS GIVEN ORDERED AND WELL TOLERATED. FALL PRECAUTIONS IN PLACE. UP TO THE BSC SEVERAL TIMES WITH ASST/GAIT/WALKER. PT HAVING TAR COLORED STOOLS. CONTACTED DIANA FERGUSON AND GI REGARDING STOOL AND INABILITY TO COMPLETED PREP. DUCOLAX TABS ORDERED. HGB DRAW COMPLETED AND PENDING. NPO AFTER MIDNIGHT. IVF RUNNING. PT DENIES NEEDS. SLEEPING WELL AT THIS TIME. WILL CONTINUE TO MONITOR FREQUENTLY.
[2020-12-02 04:26] LABS: LYMPHOCYTES 27.7 % (24.0-44.0); WBC 6.5 thou/uL (4.0-11.0)
[2020-12-02 04:28] LABS: BASOPHILS 1.2 % (0.0-2.0); EOSINOPHILS 3.7 % (0.0-3.0); MCH 32.5 pg (26.0-34.0); MCHC 33.4 g/dL (28.0-37.0); MCV 97.2 fL (80.0-100.0); MONOCYTES 6.5 % (1.0-8.0); PLATELET COUNT 177 thou/uL (150-400); POLYS 60.9 % (36.0-66.0); RBC 1.95 mil/uL (4.20-5.00); RDW 16.5 % (10.5-14.5)
[2020-12-02 04:44] LABS: HEMOGLOBIN 6.3 gm/dL (12.0-15.0)
[2020-12-02 04:45] LABS: HEMATOCRIT 18.9 % (37.0-47.0)
[2020-12-02 05:00] LABS: CALCIUM 9.2 mg/dL (8.5-10.1); CREATININE 1.2 mg/dL (0.6-1.0); MAGNESIUM 1.8 mg/dL (1.8-2.4); POTASSIUM 3.5 mmol/L (3.5-5.1)
[2020-12-02 05:49] VITALS: BP 132/54; BP 133/69; BP 134/60; BP 147/69
[2020-12-02 07:15] VITALS: BP 147/69
--- NOTE | 2020-12-02 07:49 | NUR ---
HGB THIS MORNING WAS DOWN TO 6.3. CONTACTED DIANA FERGUSON AND PER ORDERS STARTED TRANSFUSING 1 UNIT PRBC. VSS. PT TOLERATING TRANSFUSION. DENIES NEEDS. INFORMED DAY RN THAT GI MAY NEED TO ORDER MORE PREP THIS MORNING AND TO INFORM GI THAT SHE REQUIRED A TRANSFUSION THIS MORNING.
[2020-12-02 09:49] LABS: HEMATOCRIT 22.9 % (37.0-47.0); HEMOGLOBIN 7.6 gm/dL (12.0-15.0); MCHC 33.4 g/dL (28.0-37.0); MCV 95.9 fL (80.0-100.0); RBC 2.38 mil/uL (4.20-5.00); RDW 16.1 % (10.5-14.5); WBC 6.5 thou/uL (4.0-11.0)
--- NOTE | 2020-12-02 10:00 | NUR ---
ASSUMED CARE AT 0700. DID NOT SLEEP WELL DUE TO GETTING UP SEVERAL TIMES GOING TO THE BSC. SHE WAS ON BOWEL PREP AND ONLY MANAGED TO FINISH HALF ONLY. ALERT AND ORIENTATED X 3, SEEMS TIRED AND RESTING IN BED AT SHIFT CHANGE. 2ND UNIT BLOOD COMPLETED AT 0815. NO REACTION NOTED, VSS AND DOCUMENTED. POST TRANSFUSION HGB 7.6. NPO MAINTAINED SINCE MN. LYMPHADEMA TREATMENT DONE TODAY. PT HAD OT AND ST TODAY. DENIES ANY SIGNS OF LIGHTHEADEDNESS, DIZZINESS WITH MOVEMENT AND ACTIVITY. HAD 2 WATERY LIGHT BLACK WITH SMALL SEDIMENT OF STOOL. PETROS WITH GI NOTIFIED, PT ALREADY HAD A COVID TEST IN THE PAST AND DOES NOT A NEW TEST DONE. REPORT GIVEN TO TESS WITH GI LAB AND TO PETROS HUMAN RESOURCES HR GENERALIST. CONSENT NOT SIGNED AND IS IN THE CHART. PT LEFT AROUND 1120 WITH THE BED FOLLOW BY TWO STAFFS.
[2020-12-02 14:39] VITALS: BP 140/65
[2020-12-02 20:00] VITALS: BP 121/49
--- NOTE | 2020-12-03 00:33 | NUR ---
PT ASSESSMENT COMPLETED AND VSS. MEDS GIVEN ORDERED AND WELL TOLERATED. FALL PRECAUTIONS IN PLACE. UP TO THE BATHROOM WITH ASST/GAIT/WALKER. 0 BM SO FAR DURING THE SHIFT. VOIDING MODERATE AMOUNT OF YELLOW URINE. LYMPH WRAPS ON LEGS. SLEEPING WELL. DENIES NEEDS. WILL CONTINUE TO MONITOR FREQUENTLY.
[2020-12-03 04:54] LABS: HEMOGLOBIN 6.9 gm/dL (12.0-15.0); RDW 16.3 % (10.5-14.5)
[2020-12-03 04:58] LABS: CALCIUM 8.9 mg/dL (8.5-10.1); CREATININE 1.2 mg/dL (0.6-1.0); POTASSIUM 3.3 mmol/L (3.5-5.1)
[2020-12-03 04:59] LABS: HEMATOCRIT 20.2 % (37.0-47.0); MCH 32.8 pg (26.0-34.0); MCHC 34.1 g/dL (28.0-37.0); MCV 96.2 fL (80.0-100.0); RBC 2.1 mil/uL (4.20-5.00); WBC 5.5 thou/uL (4.0-11.0)
--- NOTE | 2020-12-03 07:40 | NUR ---
PT GETTING READY TO RECIEVE ONE UNIT PRBC. PT RESTING IN BED DENIES ANY PAIN. PT VSS. PT HAS IV TO LEFT FA WITH 20 G AND SALINE RUNNING PRE-BLOOD. PT BLOOD VERIFIED X2 NURSES.
[2020-12-03 07:48] VITALS: BP 129/54
--- NOTE | 2020-12-03 08:10 | NUR ---
BLOOD HANGING AT THIS TIME. PT IS TOLERATING RATE OF 60ML/HR.
--- NOTE | 2020-12-03 09:56 | NUR ---
PT TOOK AM MEDS WITH ORANGE JUICE WHOLE A COUPLE AT A TIME. PT TOLERATING BLOOD AND RATE INCREASED TO 120ML/HR. PT DIDN'T WANT VERY MUCH TO EAT FOR BREAKFAST. PT HAS FRESH WATER. PT HAS BEEN INCON. OF URINE IN BED X1 WHILE BLOOD IS RUNNING. PT KNOWS WHEN VOIDING. BARRIER CREAM PLACED IN BUTTOCKS.
[2020-12-03 12:01] VITALS: BP 118/40; BP 129/54
--- NOTE | 2020-12-03 12:01 | NUR ---
PT FINISHED BLOOD AND VSS. PT WANTED UP IN CHAIR FOR LUNCH AND TO GET OUT OF BED. PT WAS INCON. X1 AGAIN IN BED. PT BOTTOM WIPED WITH CLEAN WIPES. PT DIDN'T COMPLAIN OF DIZZINESS WHEN STANDING. PT SAT IN CHAIR AND NEEDED PILLOW BEHING BACK. PT LOWER EXT ARE WRAPPED WITH SENA BANDAGE.
--- NOTE | 2020-12-03 18:18 | NUR ---
PT HAS BEEN IN CHAIR THIS SHIFT AFTER GETTING UP AFTER BLOOD ADM. REC. SLEEPING IN BED TONIGHT. PT STATED SHE DIDN'T KNOW. PT DIDN'T EAT VERY GOOD FOR LUNCH AND DINNER. PT REFUSED THE GLUCERNA SHAKE FOR LUNCH AND DINNER. PT UP WITH X1 ASSIST WITH WALKER. PT STATED SHE STILL FEELS SORE TO BUTTOCKS. PT HAS CREAM BETWEEN BUTTOCKS. PT STILL HAVEING GRITTY STOOLS THAT HAVE DARK GREEN IN COLOR. PT STOOL LOOKS THE SAME BEFORE GI PROCEDURE.
--- NOTE | 2020-12-03 18:39 | NUR ---
PT THREE SON'S CAME TO VISIT. PT SON MECCA, SAID HE WANTED THE GI TO CALL HIM DUE TO HAVING QUESTIONS ABOUT CIRROSIS TO LIVER AND WHAT STAGE IT IS AT AND WHAT IS THE PROGNOSIS OF THE DZ.
[2020-12-03 19:35] VITALS: BP 126/49
--- NOTE | 2020-12-04 01:52 | NUR ---
PATIENT ENCOURAGED TO GET IN BED, SO FAR REFUSING AND IS UP IN RECLINER CHAIR. LYMPHEDEMA WRAPS INTACT,TOLERATING PO AND STATES FEELS STRONGER AND MORE COMFORTABLE TODAY, NOTES THAT SHE DID HAVE A BAD DREAM ABOUT MIDNIGHT THAT BOTHERED HER BECAUSE, IN THE DREAM, SHE WAS HAVING HURDLES IN PLACE OF EVER GETTING OUT OF THE HOSPITAL.
[2020-12-04 04:51] LABS: ABSOLUTE NEUTROPHILS 4.4 thou/uL (1.4-8.2); BASOPHILS 1.2 % (0.0-2.0); EOSINOPHILS 5.2 % (0.0-3.0); HEMATOCRIT 24.7 % (37.0-47.0); HEMOGLOBIN 8.2 gm/dL (12.0-15.0); LYMPHOCYTES 30.8 % (24.0-44.0); MCH 31.1 pg (26.0-34.0); MCHC 33.3 g/dL (28.0-37.0); MCV 93.2 fL (80.0-100.0); MONOCYTES 6.9 % (1.0-8.0); PLATELET COUNT 191 thou/uL (150-400); POLYS 55.9 % (36.0-66.0); RBC 2.65 mil/uL (4.20-5.00); RDW 19.2 % (10.5-14.5); WBC 7.9 thou/uL (4.0-11.0)
[2020-12-04 05:05] LABS: ALBUMIN 2.6 g/dL (3.4-5.0); CALCIUM 8.9 mg/dL (8.5-10.1); CREATININE 1.1 mg/dL (0.6-1.0); MAGNESIUM 1.7 mg/dL (1.8-2.4); PHOSPHORUS 3.1 mg/dL (2.6-4.7); POTASSIUM 3.5 mmol/L (3.5-5.1); TOTAL BILIRUBIN 0.5 mg/dL (0.2-1.0); TOTAL PROTEIN 5.9 g/dL (6.4-8.2)
[2020-12-04 07:15] VITALS: BP 145/71
--- NOTE | 2020-12-04 08:23 | NUR ---
PT SITTING IN RECLINER CHAIR THIS AM. ASSISTED PT TO BATHROOM TO VOID. NO BM NOTED. PT STATED SHE FELT SORE TO LEFT SIDE OF PANIS, LOOKED AND SEEN REDDNESS, CLEANED WITH A PERSONAL WIPE AND WILL APPLY INTERDRY TO AREA. PT STATED SHE FELT PRETTY GOOD TODAY. PT STATED SHE SLEPT IN CHAIR DURING THE HS. PT LIKES TO TAKE MEDS WITH ORANGE JUICE. PT STILL HAS LE WRAPPED WITH SENA BANDAGE.
--- NOTE | 2020-12-04 12:19 | NUR ---
ADM MAG. 400MG PO X1 PER LAB RESULTS MAG 1.7.
--- NOTE | 2020-12-04 18:31 | NUR ---
PT SITTING UP IN CHAIR ALL DAY. PT UPSET ABOUT HER HAIR AND SHE STATED SHE USED MAKE-UP AND DIDN'T HAVE ANY. PT HAS BEEN PLEASANT THIS SHIFT AND CALLED FOR ASSISTANCE TO VOID. NO BM NOTED FROM PT.
[2020-12-04 19:55] VITALS: BP 117/49
--- NOTE | 2020-12-05 01:17 | NUR ---
Z-GUARD APPLIED BETWEEN BUTTOCKS AND MEDIAL RIGHT BUTTOCK WOUND SPOT WHICH NO LONGER STICKS OUT AMONGST MID-BUTTOCK REDNESS. PATIENT AGAIN REFUSING TO LIE IN BED TONIGHT, SINCE WE CANNOT USE THE LOW AIR MATTRESS, WAFFLE CUSHION ON RECLINER CHAIR.
[2020-12-05 06:36] LABS: EOSINOPHILS 5.5 % (0.0-3.0); HEMATOCRIT 24.8 % (37.0-47.0); HEMOGLOBIN 8.3 gm/dL (12.0-15.0); LYMPHOCYTES 28.3 % (24.0-44.0); MCH 31.1 pg (26.0-34.0); MCHC 33.4 g/dL (28.0-37.0); MCV 93.3 fL (80.0-100.0); MONOCYTES 5.9 % (1.0-8.0); PLATELET COUNT 196 thou/uL (150-400); POLYS 59.3 % (36.0-66.0); RBC 2.66 mil/uL (4.20-5.00); RDW 19.7 % (10.5-14.5); WBC 8.4 thou/uL (4.0-11.0)
[2020-12-05 06:47] LABS: CALCIUM 9.2 mg/dL (8.5-10.1); CREATININE 1.1 mg/dL (0.6-1.0); POTASSIUM 3.5 mmol/L (3.5-5.1)
[2020-12-05 07:15] VITALS: BP 121/51
[2020-12-05 11:28] LABS: ANISOCYTOSIS 1+; PLATELET ESTIMATE NORMAL; POLYCHROMASIA 1+
--- NOTE | 2020-12-05 12:53 | PLAN ---
[facility] [address] REHAB UNIT PLAN OF CARE Name: AGGIE YING Room #: 509-P ADM IN M.R.#: [id number] Admission: 11/23/20 Attend Phys: Gabino Simpson MD Discharge: Date of : 42 Report #: [id number] THIS REPORT FOR: cc: Leroy Chávez MD, Stanley P. MD Smithson, David G. MD ~ DATE OF SERVICE: 11/26/2020 PROGRESS NOTE/OVERALL PLAN OF CARE SUBJECTIVE: The patient is seen back today in followup. She was in no distress. Last recorded temperature 36.4, pulse 69, respirations 20, blood pressure 134/64. She is somewhat forgetful, but otherwise follows basic commands. She was in no distress. She has been working in therapies with transfers, contact guard and gait 15 feet contact guard with a front-wheeled walker. She has walked up to 250 feet with the front-wheeled walker, contact guard assistance. In occupational therapy, lower body dressing is max assist, upper body dressing with supervision. She also is being seen by Speech Therapy with [id number] cognitive deficits and severe memory deficits. ASSESSMENT: 1. Toxic metabolic encephalopathy. 2. Sepsis secondary to recurrent urinary tract infection and lower extremity wounds. 3. Medical complexity with generalized debilitation. 4. Bilateral lower extremity chronic lymphedema with wound. 5. Stage 3 gluteal wound. 6. Paroxysmal atrial fibrillation. 7. Hypertension. 8. Diabetes mellitus type 2. 9. Nephrolithiasis with renal calculi. PLAN: The overall plan of care is based on the preadmission screen and information garnered from therapy assessments. 1. Estimated length of stay is probably 10-14 days. 2. Medical prognosis is reasonably good. 3. Anticipated interventions includes the interdisciplinary acute inpatient rehabilitation program. 4. Anticipated functional outcomes would be for the patient to improve as far as transfers, mobility, gait as well as ADLs that she can return back to the home setting. 5. Discharge destination would be back to the home setting where she lives with her son. 6. Expected therapy by discipline includes PT, OT and speech 1 hour per day each five days a week throughout the duration of the acute inpatient [facility] [address] [place] [address] REHAB UNIT PLAN OF CARE Name: DEONNAAGGIE SHELBIE Room #: 509-P [facility] IN ..#: [id number] Admission: 11/23/20 Attend Phys: Gabino Simpson MD Discharge: Date of : 42 Report #: [id number] rehabilitation stay. The patient's prognosis for significant practical improvement within a reasonable period of time appears good. Given the patient's complex medical condition and risk of further medical complication, rehabilitation services could not be safely provided at a lower level of care such as a nursing home facility. <ELECTRONICALLY SIGNED> By: Gabino Simpson MD 12/05/20 1253 1137 2036 Gabino Simpson MD /DONNY
--- NOTE | 2020-12-05 16:01 | NUR ---
PT ALERT AND ORIENTED TIMES THREE. VSS. PT DENIES PAIN/SOA. PT TOLERATES MEDS AND MEALS. PT WORKED WELL WITH PT/OT TODAY. BLE WRAPPED. PT PROGRESSING TOWRADS POC GOALS.
--- NOTE | 2020-12-05 17:06 | PATH ---
[facility] [place] [address] PATHOLOGY RPT PROCEDURE Name: ARLEEN YING SHELBIE Room #: 509-P ADM IN M.R.#: [id number] Admission: 11/23/20 Date of : 42 Discharge: Report #: [id number] Path Case #: [id number] [facility] Accession Number: [id number] . 01 Material submitted: . PART A: duodenum - BIOPSY OF DUODENUM PART B: gastrointestinal site - BIOPSY OF ANTRUM PART C: colon - POLYP ASCENDING COLON. Modifiers: ascending PART D: splenic flexure - POLYP SPLENIC FLEXURE X5. Modifiers: X5 PART E: sigmoid colon - POLYP SIGMOID COLON . 01 Clinical history: . EGD/COLONOSCOPY METABOLIC ENCEPHALOPATHY POSITIVE FOR HEMOCCULT,ANEMIA FOR A- RULE OUT CELIAC . 02 Diagnosis: A. Small bowel mucosa, duodenum R/O celiac, endoscopic biopsy: - No diagnostic abnormalities present. - Negative for villous blunting or increase in intraepithelial lymphocytes. . B. Gastric mucosa, antrm R/O H. pylori, endoscopic biopsy: - Mild chronic active gastritis. - Negative for intestinal metaplasia or atrophy. - Negative for Helicobacter pylori (properly controlled immunohistochemical stain performed. . C. Polyp, ascending colon, endoscopic biopsy: - Superficial sample of a tubular adenoma. - Negative for high-grade dysplasia. . D. Polyp x5, splenic flexure, endoscopic biopsy: - Multiple fragments showing a tubular adenoma. - Negative for high-grade dysplasia. . E. Polyp, at sigmoid colon, endoscopic biopsy: - Tubular adenoma. - Negative for high-grade dysplasia. (IUV:cristofer; 12/05/2020) S 12/05/2020 1516 Local . 02 Electronically signed: . Kayleigh Aburto MD, Pathologist NPI- [id number] . [address] [address] PATHOLOGY RPT PROCEDURE Name: ARLEEN YING SHELBIE Room #: 509-P [facility] IN [facility].#: [id number] Admission: 11/23/20 Date of : 42 Discharge: Report #: [id number] Path Case #: [id number] Gross description: . A. Received in formalin labeled "Arleen Ying biopsy of duodenum rule out celiac" are 2 fragments of rosario-brown soft tissue measuring 0.5 x 0.4 x 0.3 cm and 0.4 x 0.3 x 0.3 cm. The specimen is submitted entirely in A1. . B. Received in formalin labeled "Arleen Ying biopsy of antrum rule out H. pylori" is a fragment of rosario-brown soft tissue measuring 0.5 x 0.4 x 0.3 cm. The specimen is submitted entirely in B1. . C. Received in formalin labeled "Arleen Ying polyp at ascending colon" is a fragment of rosario-brown soft tissue measuring 0.3 x 0.2 x 0.2 cm. The specimen is submitted entirely in C1. . D. Received in formalin labeled "Arleen Ying polyp at splenic flexure x5" are multiple fragments of rosario-brown soft tissue measuring in aggregate 1.2 x 0.7 x 0.3 cm. The specimen is submitted entirely in D1. . E. Received in formalin labeled "Arleen Ying polyp at sigmoid colon" are multiple fragments of rosario-brown soft tissue measuring in aggregate 0.9 x 0.4 x 0.3 cm. The specimen is submitted entirely in E1. ([facility]; 12/03/2020) . . . GZA/GZA 12/05/2020 [facility] Local . 02 Pathologist provided ICD-10: K29.50, D12.2, D12.3, D12.5 . 02 CPT . 746068, 041820, 744004, 296741, 474132, [id number] Specimen Comment: A courtesy copy of this report has been sent to [phone], [phone] Specimen Comment: [phone] Specimen Comment: Report sent to ,DR EARL / DR ELLIOTT Performed at: 01 [facility] [address], [place] [id number] MD Raymond Lindsay MD Phone: [phone] Performed at: [address] [id number] MD Kayleigh Aburto MD Phone: [phone]
[2020-12-05 19:27] VITALS: BP 115/47
--- NOTE | 2020-12-06 03:24 | NUR ---
assumed pt care at 1900, pt is awake, up to the recliner, orientedx3, denies pain or discomfort, assessments as charted, slept on the recliner tonight, lymphedema to the bilateral lower exremities intact, ble elevated, no needs at this time, will continue to monitor
[2020-12-06 08:00] VITALS: BP 122/59
--- NOTE | 2020-12-06 08:15 | NUR ---
PT SITTING UP IN CHAIR. PT AWOKE WHEN NAMED CALLED. PT GETTING LOWER LEGS WRAPPED AT THIS TIME. PT WILL TAKE A SHOWER THIS AM.
--- NOTE | 2020-12-06 12:22 | HC ---
[facility] [place] [address] CONSULTATION Name: AGGIE YING Room #: 509-P ADM IN M.R.#: [id number] Admission: 11/23/20 Attend Phys: Gabino Simpson MD Discharge: Date of : 42 Report #: [id number] THIS REPORT FOR: cc: Leroy Chávez MD, Stanley P. MD Deutch,Markos Conner. PhD ~ DATE OF SERVICE: 11/27/2020 BEHAVIORAL STATUS EXAM ATTENDING PHYSICIAN: Gabino Simpson MD LOCK MASTER: Markos Cantu, PhD CLINICAL PRESENTATION: The patient is a 80-year-old female admitted to the rehabilitation unit at [facility] for a comprehensive inpatient rehabilitation program. She was initially admitted to the hospital on 11/19/2020 with sepsis secondary to urinary tract infection. She has a problem list that includes acute renal failure, acute kidney injury, atrial fibrillation, cellulitis, failure of outpatient treatment, generalized weakness, flank pain, fever, hypoglycemia, kidney stone, lactic acidosis, leukocytosis, pneumonia, pyelonephritis, sepsis, subdural hematoma, UTI, vomiting, weakness and wound infection. Her assessment on admission to the rehabilitation unit included acute metabolic encephalopathy, sepsis secondary to recurrent UTI and lower extremity wounds, medical complexity with generalized debility, BLE chronic lymphedema with wound, stage 3 gluteal wound, PAF, hypertension, type 2 diabetes mellitus and nephrolithiasis, renal calculi. Neuropsychological consultation was requested to provide assistance in the assessment of cognitive and emotional status and provide recommendations and services. Prior to this most recent admission, she had been living with the assistance of her son in her home. She has 3 children. The patient reports she just was not feeling good and was brought to the hospital. She was in 2011. She describes having problems with pain currently. 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 She is a high school graduate. TECHNIQUES UTILIZED: Clinical interview, review of medical records, staff consultation and behavioral observation, mini mental status exam 2 standard version, clock drawing and verbal fluency assessment. EXAMINATION Findings: The patient was alert and cooperative with the assessment. She accurately described aspects of the initial hospitalization. She does not present with aphasia. There is no report of auditory or visual [address] [address] CONSULTATION Name: AGGIE YING SHELBIE Room #: 509-P [facility] IN .R.#: [id number] Admission: 11/23/20 Attend Phys: Gaibno Simpson MD Discharge: Date of : 42 Report #: [id number] hallucinations. She describes her symptoms to include memory, word finding, and difficulty with sleep. She does not report problems with appetite or energy level. She states that she has not experienced anxiety or depression, but occasional feelings of sadness. She has not been sleeping well. She stated that her son had been paying bills. Medication is being managed by her other son. Performance on the MMSE 2 brief version was in the mild range of impairment with a raw score of 13/16. The patient was alert and oriented, but she was 0/3 for immediate recall of 3 items after a brief time delay and distraction. Her performance on the MMSE 2 standard version is within normal limits with a raw score of 27/30. There were no deficits for serial sevens, copying, or being able to follow a simple geometric command. However, the patient is showing a mild difficulty with visual spatial construction. Letter fluency was within normal limits with a raw score of 23, T score of 47, percentile rank of 38. Category fluency was in the borderline range with a T score of 22 and percentile rank of 4. Overall, total fluency was extremely low with a T score of 26 and percentile rank of 1. While the patient is alert and oriented, she is showing deficits in visual spatial construction and category fluency, which can often suggest neurocognitive deficits associated with posterior temporal function. DIAGNOSTIC IMPRESSION: Mild neurocognitive disorder, unspecified, without behavior disorder. RECOMMENDATIONS: The patient may benefit from a more thorough neuropsych upon discharge to clarify cognitive status. Currently, she is presenting with cognitive impairment that requires assistance with issues of memory and problem solving. Increased assistance from her son will be necessary to maintain safety following discharge. Thank you very much for allowing me to provide the consultation on this patient. <ELECTRONICALLY SIGNED> By: Markos Cantu, PhD 12/06/20 1222 03 21 Markos Cantu, PhD /nt
--- NOTE | 2020-12-06 12:56 | NUR ---
team meeting, recommendation: cont to education on using timer for her at home to get up. try the apartment with timer. education with son wm who she lives with for training, move dc to 12/09 with [facility] (pt, ot, nursing, st, and sw). recommendation of life alert. then if family still wants skilled can go with in before 30 days after dc.
[2020-12-06 19:35] VITALS: BP 125/53
--- NOTE | 2020-12-07 05:36 | NUR ---
ASSUMED CARE OF PT AT 1930 ON 12/06/20. PT IS A&OX4. IS ON ROOM AIR. DENIES PAIN IN BILAT LES. WRAPS IN PLACE. PT IS STABLE. IS UP WITH 1 ASSIST, GB, WALKER TO BATHROOM. FALL PRECAUTION & HOULRY ROUNDING CONTINUED THIS SHIFT. LABS & VITALS REVIEWED. PT SLEEPS IN RECLINER. IS ABLE TO SHIFT WEIGHT IN CHAIR. PT HAS BEEN UP SEVERAL TIMES THROUGHOUT THE NIGHT TO THE BATHROOM. CALLS FOR ASSISTANCE TO STAND FOR A FEW MIN. TO READJUST SELF. PT IS CURRENTLY ASLEEP. CALL LIGHT WITHIN REACH. BARRIER CREAM TO BUTTOCKS. WILL CONTINUE TO MONITOR.
[2020-12-07 07:15] VITALS: BP 123/46
--- NOTE | 2020-12-07 09:22 | NUR ---
faxed referral to becca goldman with [facility] letter. dc on
--- NOTE | 2020-12-07 16:52 | NUR ---
ASSUMED CARE AT 0700. A&0X4. DENIES PAIN. AM BG WAS 141. LYMPHEDEMA WRAPS ARE IN PLACE ON BLE. IV IN LEFT FOREARM SALINE LOCKED, NO S/S OF INFECTION OR INFILTRATION. ASSIST OF 1 W/ GAITBELT AND WALKER. PATIENT PREFERS REMAINING IN ARMCHAIR, BUT FREQUENTLY STANDSUP TO GO TO THE BATHROOM. WAFFLE CUSHION IN PLACE WHILE IN CHAIR. PATIENT IS CALM AND COOPERATIVE AND IS LOOKING FORWARD TO DISCHARGE ON 12/09. NO CONCERS AT THIS TIME. WILL CONTINUE TO MONITOR.
[2020-12-07 19:19] VITALS: BP 102/41
--- NOTE | 2020-12-08 02:43 | NUR ---
ASSESSED AT START OF SHIFT PT A&OX4. SITTING IN RECLINE WITH EXT ELEVATED. PT STATES PREFERS TO SLEEP IN RECLINER AND DOES THE SAME AT HOME. CUSHION PAD ON CHAIR. PT UP WITH SBA TO THE BATHROOM WITH A WALKER. RESTING COMFORTABLY TONIGHT. NO FURTHER SIGNS OF DISCOMFORT WILL CONT TO MONITOR.
[2020-12-08 05:38] LABS: ABSOLUTE NEUTROPHILS 4.4 thou/uL (1.4-8.2); BASOPHILS 0.7 % (0.0-2.0); EOSINOPHILS 5.8 % (0.0-3.0); HEMOGLOBIN 7.1 gm/dL (12.0-15.0); LYMPHOCYTES 28.1 % (24.0-44.0); MCH 31.5 pg (26.0-34.0); MCHC 33.6 g/dL (28.0-37.0); MCV 93.6 fL (80.0-100.0); MONOCYTES 7.6 % (1.0-8.0); PLATELET COUNT 176 thou/uL (150-400); POLYS 57.8 % (36.0-66.0); RBC 2.24 mil/uL (4.20-5.00); RDW 18.9 % (10.5-14.5); WBC 7.6 thou/uL (4.0-11.0)
[2020-12-08 05:40] LABS: INR 1.04; PROTIME 11.3 Seconds (10.5-12.1)
[2020-12-08 05:41] LABS: CREATININE 1.4 mg/dL (0.6-1.0); MAGNESIUM 1.9 mg/dL (1.8-2.4); POTASSIUM 3.6 mmol/L (3.5-5.1)
[2020-12-08 08:00] VITALS: BP 136/64
[2020-12-08 12:35] LABS: % SATURATION 10 % (20-39); IRON 28 ug/dL (50-170); TIBC 281 ug/dL (250-450)
--- NOTE | 2020-12-08 16:05 | NUR ---
PT ALERT AND ORIENTED TIMES FOUR. VSS. PT DENIES PAIN/SOA. PT TOLERATES MEDS AND MEALS. PT WORKED WELL WITH PT/OT TODAY. BLE LYMPHEDEMA WRAPS DONE TODAY BY LYMPHEDEMA CLINIC STAFF. PT SONS AT BEDSIDE FOR EDUCATION FOR DISCHARGE TOMORROW. WILL CONTINUE TO MONITOR.
[2020-12-08 17:44] VITALS: BP 116/53; BP 127/51; BP 136/62
[2020-12-08 20:10] VITALS: BP 117/42
--- NOTE | 2020-12-09 03:40 | NUR ---
Assumed pt care at 1900.A/OX4,pleasant. VSS.Blood transfusion completed at 2030 no ADR reported. Up with SBA RW/GB to the bathroom. Pt sleeps on the chair even at home,BLE extremities elevated. Lymphedema wraps in place C/D/I. IV leaking after transfusion;discontinued. Fall precautions in place, calls approp for help. Will continue to monitor pt.
--- NOTE | 2020-12-09 07:50 | NUR ---
PT SITTING UP IN RECLINER CHAIR. PT HAS EYES CLOSED AT THIS TIME. PT AWAKEN WHEN GETTING TRAY SET UP FOR BREAKFAST. PT STATED SHE IS GOING HOME TODAY. PT SAID TODAY IS SATURDAY ISN'T IT. PT SKIN COLOR IS PALE THIS AM. PT UP WITH WALKER WHEN USING BATHROOM. PT SLEEPS IN RECLINER CHAIR AT .
[2020-12-09] MEDS ORDERED: PROTONIX40 M2 PO (08:39)
[2020-12-09] MEDS ORDERED: GLIPIZIDE ER2.5 MG PO (08:39)
[2020-12-09] MEDS ORDERED: CHLORTHALIDONE50 MG PO (08:39)
[2020-12-09] MEDS ORDERED: PROBIOTIC1 EAC1 PO (08:44)
[2020-12-09 08:45] VITALS: BP 114/55
[2020-12-09 09:23] LABS: ABSOLUTE NEUTROPHILS 4.3 thou/uL (1.4-8.2); BASOPHILS 0.6 % (0.0-2.0); EOSINOPHILS 6.6 % (0.0-3.0); HEMATOCRIT 23.4 % (37.0-47.0); HEMOGLOBIN 7.9 gm/dL (12.0-15.0); LYMPHOCYTES 22.1 % (24.0-44.0); MCH 31.2 pg (26.0-34.0); MCHC 33.5 g/dL (28.0-37.0); MONOCYTES 7.5 % (1.0-8.0); PLATELET COUNT 179 thou/uL (150-400); POLYS 63.2 % (36.0-66.0); RBC 2.52 mil/uL (4.20-5.00); RDW 18.4 % (10.5-14.5); WBC 6.9 thou/uL (4.0-11.0)
[2020-12-09 09:36] VITALS: BP 114/55
[2020-12-09 09:36] LABS: CALCIUM 8.9 mg/dL (8.5-10.1); CREATININE 1.3 mg/dL (0.6-1.0); POTASSIUM 3.8 mmol/L (3.5-5.1)
--- NOTE | 2020-12-09 09:42 | NUR ---
dc home today with becca goldman [phone] , [facility] care # [phone], fax # [phone]. Sons will pick her up after work today. dc orders faxed to [facility] and [facility]. [facility] letter was sent with referral to becca goldman.
[2020-12-09 09:49] LABS: ANISOCYTOSIS 1+; PLATELET ESTIMATE NORMAL
[2020-12-09] MEDS ORDERED: IRON325 PO (11:45)
--- NOTE | 2020-12-09 11:53 | NUR ---
PT WIPING LEFT SIDE OF ABD AND THERE WAS PINK TINGED DRAINAGE FROM LEFT SIDE OF ABD. PT DID HAVE INTERDRY TO LEFT PANIS SIDE. WILL ASSESS WHEN PT OUT OF BATHROOM.
--- NOTE | 2020-12-09 16:20 | NUR ---
PT SON IS HERE NOW AND BEATRICE CHILI PEPPER GRINDER WITH GO OVER D/C MEDS WITH HIM. HIS MAIN CONCERN WAS WHAT MEDS SHE TAKES IN AM AND PM. PT WAS ABLE TO SIT IN W/C AND WHEEL SELF TO END OF VEGA. PT THEN NEEDED ASSISTANCE TO ELEVATOR. PT LEFT WITH SON SHE LIVES WITH.
== END 2020-12-09 16:30 | disposition home health service (06) | DRG 91 ==
PROVIDERS: Hospitalist; Internal Medicine; Internal Medicine Gastroenterology; Nurse Practitioner; Nurse Practitioner Family; ADMIT Physical Medicine & Rehabilitation; ATTEND Physical Medicine & Rehabilitation
DX: G92 Toxic encephalopathy (principal); L89.313 Pressure ulcer of right buttock, stage 3; A41.9 Sepsis, unspecified organism; Z68.41 Body mass index [BMI] 40.0-44.9, adult; N17.9 Acute kidney failure, unspecified; N13.6 Pyonephrosis; E46 Unspecified protein-calorie malnutrition; E44.0 Moderate protein-calorie malnutrition; D62 Acute posthemorrhagic anemia; K76.6 Portal hypertension; I10 Essential (primary) hypertension; I48.0 Paroxysmal atrial fibrillation; M48.00 Spinal stenosis, site unspecified; Z85.3 Personal history of malignant neoplasm of breast; E66.01 Morbid (severe) obesity due to excess calories; Z66 Do not resuscitate; R53.81 Other malaise; E11.9 Type 2 diabetes mellitus without complications; L40.9 Psoriasis, unspecified; N32.81 Overactive bladder; E78.00 Pure hypercholesterolemia, unspecified; G47.00 Insomnia, unspecified; I87.8 Other specified disorders of veins; L30.4 Erythema intertrigo; L30.9 Dermatitis, unspecified; K74.60 Unspecified cirrhosis of liver; K31.89 Other diseases of stomach and duodenum; K44.9 Diaphragmatic hernia without obstruction or gangrene; K64.8 Other hemorrhoids; M54.30 Sciatica, unspecified side; K63.5 Polyp of colon; G31.84 Mild cognitive impairment of uncertain or unknown etiology; Z90.710 Acquired absence of both cervix and uterus; Z88.1 Allergy status to other antibiotic agents; Z88.5 Allergy status to narcotic agent; Z88.8 Allergy status to other drugs, medicaments and biological substances; Z79.84 Long term (current) use of oral hypoglycemic drugs; Z79.899 Other long term (current) drug therapy
CPT/HCPCS: 10112; 62110; 62900; 70005

== ENCOUNTER 2020-12-15 15:20 | Inpatient (IN) | payer OTHER, BC ==
[~2020-12-15] VITALS: Ht 177.8 cm; Wt 104.3 kg
[~2020-12-15 15:20] MED LIST changes: +CHLORTHALIDONE50 MG PO; +GLIPIZIDE ER2.5 MG PO; +HYDROCORTISONE30 G9 RECTAL; +IRON325 PO; +PROBIOTIC1 EAC1 PO
[2020-12-15 15:27] VITALS: BP 131/62
[2020-12-15 16:29] LABS: MCV 96.7 fL (80.0-100.0); WBC 9.4 thou/uL (4.0-11.0)
[2020-12-15 16:30] LABS: MCH 32.3 pg (26.0-34.0); MCHC 33.4 g/dL (28.0-37.0); PLATELET COUNT 214 thou/uL (150-400); RDW 20.3 % (10.5-14.5)
[2020-12-15 16:32] LABS: HEMATOCRIT 17.4 % (37.0-47.0); HEMOGLOBIN 5.8 gm/dL (12.0-15.0)
[2020-12-15 16:42] LABS: APTT 25.8 Seconds (24.5-32.8); INR 1.01
[2020-12-15 16:48] LABS: CALCIUM 8.1 mg/dL (8.5-10.1); CREATININE 1.7 mg/dL (0.6-1.0); POTASSIUM 3.7 mmol/L (3.5-5.1)
[2020-12-15 16:50] LABS: ALBUMIN 2.2 g/dL (3.4-5.0); DIRECT BILIRUBIN 0.1 mg/dL (<0.1-0.2); TOTAL BILIRUBIN 0.3 mg/dL (0.2-1.0); TOTAL PROTEIN 5.7 g/dL (6.4-8.2)
[2020-12-15 17:01] LABS: ABSOLUTE NEUTROPHILS 6.8 thou/uL (1.4-8.2); MYELOCYTES 2 %; POLYCHROMASIA 2+
[2020-12-15 17:02] LABS: OVALOCYTES 1+; TEARDROPS 1+
[2020-12-15 17:48] VITALS: BP 125/59; BP 126/60; BP 127/56; BP 131/59
[2020-12-15] MEDS ORDERED: IRON325 M1 PO (19:40)
[2020-12-15] MEDS ORDERED: NYAMYC15 GM TOP (19:40)
[2020-12-15 19:56] VITALS: BP 119/57
[2020-12-15 20:40] VITALS: BP 126/56
[2020-12-15 21:53] LABS: HEMATOCRIT 20.8 % (37.0-47.0); HEMOGLOBIN 6.9 gm/dL (12.0-15.0); MCH 32.2 pg (26.0-34.0)
[2020-12-15 21:55] LABS: MCHC 33.1 g/dL (28.0-37.0); MCV 97.3 fL (80.0-100.0); RBC 2.14 mil/uL (4.20-5.00); RDW 18.1 % (10.5-14.5)
[2020-12-16] VITALS (10 sets, daily range): BP systolic 112–144; BP diastolic 49–81
--- NOTE | 2020-12-16 04:11 | NUR ---
PT WAS ADMITTED TO THE UNIT FROM THE ER IN A STBALE CONDITION.PT DENIED PAIN ON ADMISSION.PT'S HGB ON ADMIT WAS 5.8, GOT 1 UNIT OF BLOOD.PT WAS HAD PROTONIX INFUSING WHEN SHE GOT TO THE FLOOR.BLE LYMPHEDEMA NOTED WITH OPEN AREAS NOTED ON BOTH LEGS.PT HAS OPEN AREA TO THE CRACK OF HER SACRUM,ZGUARD APPLIED.BLE WRAPPED WITH KERLIX AND SENA WRAP.STILL NEED STOOL FOR OCCULT BLOOD.UP WITH SBA ASSIST/WALKER TO BS.PT NPO SINCE AK FOR EGD LATER IN THE DAY.PT SLEEPING IN THE RECLINER AT THIS TIME.CALL LIGHT WITHIN REACH.
[2020-12-16 05:33] LABS: HEMOGLOBIN 6.5 gm/dL (12.0-15.0)
[2020-12-16 05:35] LABS: MCH 32.3 pg (26.0-34.0); MCHC 33.2 g/dL (28.0-37.0); MCV 97.3 fL (80.0-100.0); RBC 2.03 mil/uL (4.20-5.00); RDW 18.6 % (10.5-14.5); WBC 8.6 thou/uL (4.0-11.0)
[2020-12-16 05:39] LABS: HEMATOCRIT 19.7 % (37.0-47.0)
[2020-12-16 05:53] LABS: CREATININE 1.4 mg/dL (0.6-1.0); POTASSIUM 3.7 mmol/L (3.5-5.1)
--- NOTE | 2020-12-16 06:57 | EKG ---
[address] [address] ELECTROCARDIOGRAM REPORT Name: AGGIE YING SHELBIE Room #: 453-P ADM IN M.R.#: [id number] Admission: 12/15/20 Attend Phys: Austin Hunt MD Discharge: Date of : 42 Report #: [id number] [facility] ED Test Date: 2020-12-15 Test Time: 16:01:06 Pat Name: AGGIE YING Department: Room: [facility] Gender: F Staffing Account Manager: [place] : 1940 Requested By: Jojo Kim Order Number: [id number] MD: Jarad Brooks Measurements Intervals [place] Rate: 74 P: 255 [place]: 188 QRS: -85 QRSD: 194 T: 28 QT: 485 QTc: 539 Interpretive Statements Sinus or ectopic atrial rhythm RBBB and LAFB Compared to ECG 11/14/2018 20:55:44 Ectopic atrial rhythm now present Sinus rhythm no longer present Short [place] interval no longer present Electronically Signed On 12-16-2020 6:57:33 CDT by Jarad Brooks [email or web address] <ELECTRONICALLY SIGNED> By: Jarad Brooks MD, [facility] 12/16/20 0657 1601 1601 Jarad Brooks MD, [facility] /EPI
[2020-12-16 10:10] LABS: % SATURATION 24 % (20-39); IRON 60 ug/dL (50-170); TIBC 246 ug/dL (250-450)
--- NOTE | 2020-12-16 12:35 | NUR ---
Received awake on bed. On nothing per orem- pt informed and aware; mouth swabs provided. On telemtry; no complains and signs of chest pain, crushing sensation and heaviness. On room air. On blood sugar monitoring, taken and recorded accordingly. Continent of bowel and bladder, able to use bedside commode. With ongoing blood transfusion- (2nd unit during this admission); started at 6:30am by night RN; verified with Dr Schofield- to repeat H&H 4 hrs post transfusion- orders made. NS at 75cc/hr and protonix drip resumed post blood transfusion at R FA. No complains of pain made during assessment. Pt complained of skin tear/cellulitis at L FA, stating she had it when she went down for EGD yesterday- wound consult made- pt seen and examined by wound nurse- to inform Dr Asif re: this for antibiotic as outpatient; photo taken. Possible discharge today; a/w physician's orders- CM informed. To continue monitoring patient.
--- NOTE | 2020-12-16 12:43 | NUR ---
Received awake on bed. On nothing per orem- pt informed and aware; mouth swabs provided. On telemetry; no complains and signs of chest pain, crushing sensation and heaviness. On room air. Vital sings stable. On blood sugar monitoring, taken and recorded accordingly. Continent of bowel and bladder, able to use bedside commode. Falls bundle in place. With ongoing blood transfusion, started at 0630am by night RN; as per Dr Schofield to repeat H&H 4 hrs post transfusion. NS at 75cc/hr and protonix drip resumed post blood transfusion at R FA. With bilat LE lymphedema- wraps in place; as per night RN- photo taken for small wounds noted on LE. Z guard applied to buttocks. Pre-op nurse called re: time of EGD- As per Pre-op nurse shadi, she has to call physician as pt is not on the list for today- a/w call back. Pt seen and examined by DIANA Bridges- pt scheduled to have EGD today at 3pm, rapid covid swab done- specimen obtained and sent to lab; pt informed re: plan for procedure and son was called by ENVIRONMENTAL CONSULTANT as well. To continue monitoring patient.
[2020-12-16 14:42] LABS: HEMATOCRIT 23.5 % (37.0-47.0); HEMOGLOBIN 7.7 gm/dL (12.0-15.0)
--- NOTE | 2020-12-16 14:44 | NUR ---
PT ADMITTED RELATED TO UPPER GI BLEEDLYMPHEDEMA. CM REVIEWED CHART AND SPOKE WITH CARE TEAM. CM MET WITH PT AT BEDSIDE THIS DAY. PT INDICATED THAT SHE RESIDES IN A HOUSE WITH HER SON MAITE. PT INDICATED 3 STEPS TO ENTER AND NO STEPS SHE USES INSIDE. PT INDICATED SHE HAS A FWW AND A CANE TO ASSIST WITH MOBILITY. 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 PT INIDCATED SHE MAY HAVE HAD SOME HH SERVICES THROUGH A COMPANY CALLED [employer]. [facility] PT HAVING AN EGD THIS DAY. PT HAD BEEN ON 5N AND HAD DISCHARGED HOME 12/09. PT INDICATED THAT SHE PLANS TO RETURN HOME AND RESUME SERVICES WITH [facility]. CM FOLLOWING REGARDING DC PLANNING.
[2020-12-17 04:55] LABS: ABSOLUTE NEUTROPHILS 6.9 thou/uL (1.4-8.2); ABSOLUTE RETIC COUNT 0.1276 10^6/uL; BASOPHILS 0.5 % (0.0-2.0); EOSINOPHILS 3.3 % (0.0-3.0); HEMATOCRIT 22.8 % (37.0-47.0); HEMOGLOBIN 7.6 gm/dL (12.0-15.0); LYMPHOCYTES 22.1 % (24.0-44.0); MCH 32.4 pg (26.0-34.0); MCHC 33.3 g/dL (28.0-37.0); MONOCYTES 5.4 % (1.0-8.0); OBSERVED RETIC COUNT 5.43 % (0.6-2.6); PLATELET COUNT 209 thou/uL (150-400); POLYS 68.7 % (36.0-66.0); RBC 2.35 mil/uL (4.20-5.00); RDW 18.3 % (10.5-14.5); WBC 10.1 thou/uL (4.0-11.0)
--- NOTE | 2020-12-17 05:32 | NUR ---
Pt. has been up most of the shift requesting to use the comode very frequently. She has had a few small episodes of loose wine colored stools. Pt. is passing flatus. Cream applied several times to her buttocks. She offers no c/o pain or nausea. Pt. refuses to sleep in the bed and is resting in the recliner chair all shift.
[2020-12-17 06:12] LABS: FOLIC ACID 41.9 ng/mL (8.6-58.9)
[2020-12-17 08:32] VITALS: BP 110/57
--- NOTE | 2020-12-17 13:51 | NUR ---
Received awake on recliner. Due medications given as prescribed, able to swallow meds w/o difficulty. On room air. Vital signs stable. On telemetry; no complains and signs of chest pain, crushing sensation and heaviness. Assisted in ADLs. On carb controlled, heart healthy diet- tolerating well; encouraged and assisted in eating and drinking; no nausea, no vomiting and no abdominal pain noted. Continent of bowel and bladder, able to use bedside commode with standby assist, walker and gait belt; falls bundle in place. With protonix drip at R FA; infusing well. With bilateral lymphedema wraps; kept elevated. Pt prefers to stay in the recliner, refusing to go back in the bed; pillows placed on her recliner seat for offloading. Pt's son visited this PM, update given. Complained of soreness from her buttocks; off loaded with pillow, Z guard applied; tylenol PRN given as well. Monitored for bleeding; occult stool subimitted this AM- a/w results. To continue monitoring patient.
[2020-12-17 16:47] VITALS: BP 118/50
[2020-12-17 20:10] VITALS: BP 107/44
[2020-12-18 01:07] LABS: HAPTOGLOBIN 158 mg/dL (42-346); IgA 363 mg/dL (64-422); IgG 889 mg/dL (586-1602); IgM 193 mg/dL (26-217)
--- NOTE | 2020-12-18 02:51 | NUR ---
ASSUMED CARE OF PT AT 1900. PT IS A/O X4 AND IS PLEASANT AND COOPERATIVE WITH ALL CARES. HAS CHOSEN TO SLEEP IN RECLINER AND STATES SHE IS MORE COMFORTABLE IN THE CHAIR THAN THE BED. SHE IS ON ROOM AIR. IS SA/BBB ON THE MONITOR. GETS UP WITH SBA TO THE BSC BUT ALSO IS ABLE TO WALK TO THE BR WITH A WALKER AND GB. CREAM APPLIED TO BUTTOCKS. SENA WRAPS ARE LOOSELY WRAPPED ON BILATERAL LE AT PT REQUESTS TO HAVE THEM LOOSENED. LEGS ARE ELEVATED ON FOOT RESTS. DENIES C/O PAIN OR DISCOMFORT AT THIS TIME. VSS. AFEBRILE. FALL PRECAUTIONS IN PLACE, CALL LIGHT IS WITHIN REACH. WILL CONITINUE TO MONITOR.
[2020-12-18 03:05] LABS: HEMOGLOBIN 7.3 g/dL (11.1-15.9)
[2020-12-18 03:25] VITALS: BP 139/82
[2020-12-18 05:29] LABS: HEMOGLOBIN 6.8 gm/dL (12.0-15.0)
[2020-12-18 05:32] LABS: HEMATOCRIT 20.7 % (37.0-47.0); MCH 32.2 pg (26.0-34.0); MCHC 32.9 g/dL (28.0-37.0); RBC 2.11 mil/uL (4.20-5.00); RDW 18.3 % (10.5-14.5); WBC 8.6 thou/uL (4.0-11.0)
[2020-12-18 07:30] VITALS: BP 120/64
[2020-12-18 12:00] VITALS: BP 111/56; BP 118/58; BP 119/47; BP 119/59
--- NOTE | 2020-12-18 12:18 | NUR ---
ASSUMED PT CARE THIS AM. PT VSS, A&OX4. PATIENT PLEASANT AND ABLE TO MAKE NEEDS KNOWN. IV PATENT, MEDS INFUSING AND PO MEDS TAKEN WITHOUT ISSUE. HOSPITALIST NOTIFIED OF HEMOGLOBIN OF 6.8, ONE UNIT PRBC ORDERED. PATIENT AMBULATORY TO THE BEDSIDE COMMODE WITH ASSIST. PATIENT WITH EDEMA TO THE UPPER ARMS AND BLE. WRAPS ON BLE. PATIENT HAS NO COMPLAINTS OF PAIN. ON ROOM AIR. REPORTING NO NUMBNESS, TINGLING, OR NAUSEA. FALL PRECATIONS ARE IN PLACE, CALL LIGHT WITHIN REACH.
[2020-12-18 13:23] VITALS: BP 111/56
[2020-12-18 20:00] VITALS: BP 136/56
[2020-12-18 20:05] LABS: HEMATOCRIT 23.4 % (37.0-47.0)
[2020-12-19] VITALS (9 sets, daily range): BP systolic 115–147; BP diastolic 57–71
--- NOTE | 2020-12-19 03:25 | NUR ---
pt in chair during shift, statd chair more comforable to her back. no c/o pain or discomfort. pt up to [facility] frequently state had the urge. urine clear yellow no odor noted. iv patent infusing. pt up with 1 assist.
[2020-12-19 06:29] LABS: HEMATOCRIT 24.1 % (37.0-47.0); HEMOGLOBIN 8.1 gm/dL (12.0-15.0); MCH 31.3 pg (26.0-34.0); MCHC 33.5 g/dL (28.0-37.0); MCV 93.3 fL (80.0-100.0); RBC 2.59 mil/uL (4.20-5.00); RDW 21.9 % (10.5-14.5); WBC 7.7 thou/uL (4.0-11.0)
[2020-12-19 06:45] LABS: CALCIUM 7.9 mg/dL (8.5-10.1); CREATININE 1.3 mg/dL (0.6-1.0); POTASSIUM 3.5 mmol/L (3.5-5.1)
--- NOTE | 2020-12-19 10:25 | NUR ---
ASSUMED PT CARE THIS AM. PT VSS, A&OX4, VSS. PATIENT ABLE TO MAKE NEEDS KNOWN. NO COMPLAINTS OF PAIN. PATIENT AMBULATORY TO THE BEDSIDE COMMODE AND CHAIR WITH ASSIST. IV TO THE RIGHT FOREARM BECAME INFILTRATED, NEW IV STARTED TO THE RIGHT FOREARM AND MEDICATION INFUSING WELL. PATIENT HAD A BONE MARROW BIOPSY COMPLETED THIS AM, AND IS HAVE A CAPSULE STUDY COMPLETED TODAY WELL. LYMPHEDEMA WRAPS ON BILATERAL LOWER EXTREMETIES. PATIENT HAS NO COMPLAINTS OF NAUSEA, NUMBNESS, OR TINGLING. PATIENT REMAINS ON TELEMETRY. ON ROOM AIR. MEDS BEING HELD AT THIS TIME DUE TO NPO STATUS FOR BIOPSY AND CAPSULE STUDY. FALL PRECAUTIONS ARE IN PLACE AND CALL LIGHT WITHIN REACH.
--- NOTE | 2020-12-19 15:58 | NUR ---
PT HAD BONE MARROW BIOPSY DONE BY IR THIS DAY. PT HAD CAPSULE STUDY INITIATED THIS DAY WELL. CM FOLLOWING REGARDING DC PLANNING.
[2020-12-19 19:06] LABS: GLOBULIN TOTAL 3.1 g/dL (2.2-3.9); M-SPIKE Not Observed g/dL (Not Observed)
[2020-12-19 23:06] LABS: HEP B SURFACE Ab(ANTI-HBS Non Reactive (()); HEPATITIS B SURFACE AG Negative (Negative); HEPATITIS C VIRUS AB <0.1 (0.0-0.9)
--- NOTE | 2020-12-20 04:23 | NUR ---
patient aox4 makes needs known. patient had abd monitor, monitor removed per order. patient has ble wraps. patient requested to sleep in the recliner. fall precaution in place. patient in bed asleep at this time breathing regular and unlaboured.
[2020-12-20 05:55] LABS: HEMOGLOBIN 8.3 gm/dL (12.0-15.0); MCH 31.3 pg (26.0-34.0); MCHC 33.3 g/dL (28.0-37.0); MCV 93.9 fL (80.0-100.0); RBC 2.66 mil/uL (4.20-5.00); RDW 22.2 % (10.5-14.5); WBC 8.7 thou/uL (4.0-11.0)
[2020-12-20 07:16] VITALS: BP 121/60
[2020-12-20 11:07] LABS: KAPPA FREE LIGHT CHAINS 49.7 mg/L (3.3-19.4); KAPPA/LAMBDA RATIO 0.75 (0.26-1.65); LAMBDA FREE LIGHT CHAINS 66.3 mg/L (5.7-26.3)
--- NOTE | 2020-12-20 11:43 | NUR ---
PT HAD BM BIOPSY AND CAPSULE STUDY YESTERDAY. PHYSICIAN THIS AM INDICATED THAT PT COULD BE MEDICALLY STABLE TO DC HOME THIS DAY. PT AND OT TO ASSESS PT. CARE TEAM INDICATED THAT PT WILL LIKELLY BE MEDICALLY STABLE TO DC HOME WITH RESUMPTION OF [facility]. [facility] AWARE OF PROBABLE DC AND COULD LIKELY DO SOC TOMORROW. CM AWAITING THERAPY EVALS. CM FOLLOWING REGARDING DC PLANNING.
--- NOTE | 2020-12-20 12:41 | NUR ---
ASSUMED PT CARE THIS AM. PT VSS, A&OX4. PATIENT ABLE TO MAKE ALL NEEDS KNOWN. PATIENT REMAINS CONTINENT, WITH URINARY FREQUENCY. BARRIER CREAM APPLIED TO PATIENT'S BOTTOM. LYMPHEDEMA WRAPS CHANGED BY PHYSICAL THERAPY THIS AM. PATIENT REMAINS ON TELE. ON ROOM AIR. REPORTING NO PAIN, NUMBNESS, OR TINGLING. PATIENT TOOK MEDS WITHOUT ISSUE THIS AM. FALL PRECAUTIONS ARE IN PLACE, CALL LIGHT WITHIN REACH.
[2020-12-20 14:52] VITALS: BP 121/60
--- NOTE | 2020-12-20 15:56 | NUR ---
CARE TEAM INDICATED THAT PT IS MEDICALLY STABLE TO DC HOME THIS DAY. GI CLEARED PT FOR DC HOME TODAY. PT AND OT ASSESSED PT AND INDICATED SHE WOULD BE SAFE TO DC HOME WITH [facility] OF [facility]. CM SPOKE WITH SON MECCA MULTIPAL TIMES THIS DAY TO DISCUSS DC PLANNING THEY HAVE SOME PD SERVICES IN THE HOME SETTING THAT THEY NEED TO REINITIATE WELL. CM FAXED DC ORDERS AND SUMMERY TO [facility]. NO OTHER CM INTERVENTION INDICATED. CASE CLOSED.
--- NOTE | 2020-12-24 02:08 | PATH ---
[facility] [address] [place] [address] PATHOLOGY RPT PROCEDURE Name: ARLEEN BURCIAGA SHELBIE Room #: 453-P DIS IN M.R.#: [id number] Admission: 12/15/20 Date of : 42 Discharge: 12/20/20 Report #: [id number] Path Case #: [id number] [facility] Accession Number: [id number] . 01 Material submitted: . PART A: bone - BM BIOPSY PART B: bone - BM CLOT PARTICLE PREP PART C: bone - BM ASPIRATE SLIDES PART D: bone - BM PERIPHERAL SMEARS PART E: bone - BM SENDOUT . 01 Clinical history: . UPPER GI BLEED,LYMPHEDEMA ALLERGIC TO CODEINE,CEPHALEXIN,AMOXICILLIN 71 YEAR-OLD WOMAN WITH ANEMIA. . 02 Diagnosis: Bone marrow aspirate, biopsy, cell clot and peripheral blood: - Peripheral blood with moderate normocytic anemia. - Hypercellular bone marrow with trilineage hematopoiesis, mild dyspoiesis and no evidence of lymphoma or acute leukemia. - Only trace stainable iron. - See comment. (SANJANA:anita; 12/23/2020) . . Special studies report received from [facility], [address] [place] [address], [address], [place], [address], on case [id number], labeled with their number [id number], dated 12/22/2020. . Flow Cytometry: Hematologic Neoplasia Assessment . Clinical History . . Indication for Study Evaluation for hematolymphoid neoplasia . Specimen Bone Marrow Aspirate . Viability 91% (7AAD exclusion) . Interpretation Bone Marrow Aspirate: - Slightly abnormal antigen expression in myeloid and monocytic cells without increase in blasts (see comments) [address] [address] PATHOLOGY RPT PROCEDURE Name: ARLEEN BURCIAGA [facility] Room #: 453-P [facility] IN M.R.#: [id number] Admission: 12/15/20 Date of : 42 Discharge: 12/20/20 Report #: [id number] Path Case #: [id number] . Comments The immunophenotypic findings may represent a reactive process (infection, inflammation, medication effect, etc.), or may be associated with a myeloid neoplasm (MDS, MPN, etc.). Correlation with available clinical, laboratory, and morphologic data is recommended. . Populations Analyzed Myeloid Blasts: 0.3% No significant immunophenotypic abnormalities Lymphocytes: 3% B-cells: 0.1%, polytypic/polyclonal sIg light chain pattern T-cells: no significant abnormalities of the markers tested CD4+ T-cells: 2.7% (including 0.1% CD57+ cells) CD8+ T-cells: 0.7% (including 0.1% CD57+ cells) CD4:CD8: 3.7 NK cells: 0.3% Neutrophilic Cells: 93% Decreased CD10; slightly decreased CD16; partial CD56 (approximately 3%+) Monocytic Cells: 2% Partial CD56 (approximately 13%+) Eosinophils: 1.5% No relative increase Basophils: 0.1% No relative increase Plasma Cells: 0.1% Few detected; no overt abnormalities of the surface markers tested (plasma cells are typically underrepresented by flow cytometry; cytoplasmic light chains were not assessed) Hematogones: 0.0% Normal B-cell precursors CD45 Negative 0% No significant reactivity with the markers Events/Debris: tested (may represent unlysed red blood cells, erythroid precursors, platelets, debris, etc.) (erythroid precursors may be underrepresented due to sample lysis/processing) . Morphologic Evaluation A slide was reviewed for customer quality specialist purposes only. . Specimen Description Cell Yield: 37.67 x 10 and 6 . Reagent(s) Used CD2, CD3, CD4, CD5, CD7, CD8, CD10, CD11b, CD13, CD14, CD16, CD19, CD20, CD33, CD34, CD38, CD45, CD56, CD57, CD64, CD117, HLA-DR, kappa, lambda . at [facility] [employer]. Flores Bateman MD Pathologist . [address] [address] PATHOLOGY RPT PROCEDURE Name: ARLEEN BURCIAGA SHELBIE Room #: 453-P DIS IN M.R.#: [id number] Admission: 12/15/20 Date of : 42 Discharge: 12/20/20 Report #: [id number] Path Case #: [id number] . Intended Use Flow cytometry is optimally used to immunophenotypically characterize abnormal populations when they are detected. Negative flow cytometry results do not exclude lymphoma or neoplasia. Possible false negative flow cytometry results may occur in, but are not limited to, the following: neoplastic cells in Hodgkin lymphoma are not typically adequately represented by routine clinical flow cytometry; neoplastic cells may be lost or inadequately represented due to degeneration, sample processing, sampling artifact, or patchy involvement; plasma cells are typically underrepresented by flow cytometry; immature cells/blasts may be underrepresented due to hemodilution; myeloproliferative disorders and low grade myelodysplasia may not have immunophenotypic abnormalities or increased blasts. Correlation with all available clinical, laboratory, and morphologic data is always necessary to assess for the possibility of false negative flow cytometry results and to establish a diagnosis. Each marker in this analysis was used to assess for potential antigenic abnormalities or to evaluate detected abnormalities. . Any image or images that accompany this report are automotive leasing sales representative images only and should not be used to render a diagnosis. . Disclaimer(s) This test was developed and its performance characteristics determined by [facility]. It has not been cleared or approved by the Food and Drug Administration. . [facility] is a business unit of [facility] a wholly-owned subsidiary of [employer]. . This test was performed at [facility]. at [address], [address] - Automotive Quality Engineer: Justin Sierra MD. . For inquiries, the physician may contact Lab: [phone] . A complete copy of the report is on file. . Professional services performed by [employer]. at [address], [place] [address]. Technical services performed by [facility]. at [address], [place] [address]. . (CLW:juan miguel 12/22/2020) . [facility] 12/23/[address] [address] PATHOLOGY RPT PROCEDURE Name: ARLEEN BURCIAGA SHELBIE Room #: 453-P [facility]#: [id number] Admission: 12/15/20 Date of : 42 Discharge: 12/20/20 Report #: [id number] Path Case #: [id number] . 02 Comment: Overall the bone marrow is mildly hypercellular for the patient's age with trilineage hematopoiesis, mild dyspoiesis and no evidence of lymphoma or acute leukemia. The dyspoiesis in mild and while it may represent a low-grade myelodysplastic syndrome, it does not meet the morphologic criteria for myelodysplasia. Only trace stainable iron is identified. Correlation with clinical history, additional laboratory data and cytogenetics is required. . (ELIZABETHW:anita; 12/23/2020) . 02 Electronically signed: . Ashley Reyes MD, Pathologist NPI- [id number] . 01 Gross description: . A. Received in formalin labeled "Arleen Burciaga and bone marrow biopsy". Received is a rosario-brown bone marrow fragment measuring 0.3 cm in diameter and 0.5 cm in length admixed with 2 hemorrhagic clots ranging from 0.5-0.7 cm. The specimen is entirely submitted in cassette A1 after light decalcification. . B. Received in formalin labeled "Arleen Burciaga and bone marrow aspirate". Received is a rosario-brown hemorrhagic clot measuring 3.5 x 2.5 x 0.3 cm. The specimen is entirely submitted in cassettes B1 and B2.([facility]; 12/19/2020) [facility] 12/23/2020 1331 Local . 02 Microscopic: . CBC Data (12/19/20): WBC 7700 /uL, RBC 2.59, hemoglobin 8.1 g/dL, hematocrit 24.1%, MCV 93.3 fL, MCH 31.3 pg, MCHC 33.5 g/dL, RDW 21.9%, and platelet count 172,000 /uL. Automated white blood cell differential (12/17/20): Segs 68.7%, lymphs 22.1%, monos 5.4%, eos 3.3%, and basos 0.5%. . Peripheral Blood Smear: Cytomorphological examination of the Infante's stained peripheral blood smear confirms the provided data. Red blood cells show moderate to severe normocytic anemia with moderate anisocytosis. No significant poikilocytosis is identified. White blood cells are predominantly segmented neutrophils and are without significant dyspoiesis or significant left shift. Lymphocytes are predominantly small, round, and mature appearing with condensed chromatin and scant cytoplasm with admixed large granular lymphocytes. On scanning, no markedly atypical lymphoid cells are seen. Monocytes are mature. Platelets are adequate in number and mainly normal in morphology with rare larger platelets noted. . [facility] [address] [place] [address] PATHOLOGY RPT PROCEDURE Name: ARLEEN BURCIAGA SHELBIE Room #: 453-P DIS IN M.R.#: [id number] Admission: 12/15/20 Date of : 42 Discharge: 12/20/20 Report #: [id number] Path Case #: [id number] Aspirate Smears: Cytomorphological examination of the Infante's stained aspirate smears shows spicules present. The overall cellularity is approximately 50%. The myeloid to erythroid ratio is 2:1. Full myeloid maturation is identified and is without significant dyspoiesis. Erythroid maturation is mildly dyserythropoietic with irregular nuclear contours, binucleate forms, mitotic figures, nuclear cytoplasmic dyssynchrony and a rare nuclear blood. In a 500 cell differential, there are 1% blasts (no Ray rods are seen), 60% more differentiated myeloids, 32% erythroid precursors, 7% lymphocytes and less than 1% plasma cells. Megakaryocytes are proportional in number and both normal and abnormal in morphology with variable sizes and nuclear abnormalities. No lymphoid aggregates or markedly atypical lymphoid cells are seen. Plasma cells are without atypia. Iron stain of the aspirate smear shows only trace stainable iron with spicules present. No ringed sideroblasts are identified. . Core Biopsy and Cell Clot: The decalcified bone marrow core biopsy is adequate. The bone marrow is mildly hypercellular with an overall cellularity of approximately 50%. The myeloid to erythroid ratio is 2:1. Myeloid maturation is without significant dyspoiesis. Erythroid maturation is mildly dyserythropoietic. Megakaryocytes are normal in number and both normal and abnormal in morphology. No lymphoid aggregates or markedly atypical lymphoid cells are seen. Bony trabeculae and blood vessels are unremarkable. The cell clot has spicules present that are approximately 50-60% cellular. Cellular morphology is similar. . Properly controlled special stains are performed. . Block A1: Iron - 0/4+ iron positivity; Reticulin - No significant reticulin fibrosis. . Block B1: Iron - 0/4+ iron positivity (no stainable iron). . Flow Cytometry: Flow cytometric immunophenotypic analysis was performed at [facility]. The interpretation is "slightly abnormal antigen expression in myeloid and monocytic cells without increase in blasts." There are 0.3% myeloid blasts. There are 3% lymphocytes. Of the lymphocytes, there are 0.1% polyclonal B-cells. T-cells have a CD4/CD8 ratio of 3.7 and no aberrant T-cell antigen expression. Please see separate flow cytometry report from [facility] ([id number]). . Cytogenetics Analysis: Cytogenetic chromosomal analysis is pending at [facility] ([id number]). [place] [address] PATHOLOGY RPT PROCEDURE Name: ARLEEN BURCIAGA SHELBIE Room #: 453-P DIS IN .R.#: [id number] Admission: 12/15/20 Date of : 42 Discharge: 12/20/20 Report #: [id number] Path Case #: [id number] . (CLW:activity therapy specialist; 12/23/2020) . 02 Pathologist provided ICD-10: D64.9 . 02 CPT . 702897, 909151, 158394, 460615, 339546, 714469, 138580, 038497, 912166 Specimen Comment: A courtesy copy of this report has been sent to [phone] Specimen Comment: [phone], Specimen Comment: Report sent to ,DR MAY / DR ELLIOTT Performed at: 01 [facility], [place], [place] [id number] MD Raymond Lindsay MD Phone: [phone] Performed at: 02 [facility] [id number] [place] [address] [id number] MD Ashley Reyes MD Phone: [phone]
--- NOTE | 2020-12-27 12:21 | HC ---
[facility] [place] [address] CONSULTATION Name: AGGIE YING Room #: 453-P [facility] IN M.R.#: [id number] Admission: 12/15/20 Attend Phys: Darrell Schofield MD Discharge: 12/20/20 Date of : 42 Report #: [id number] THIS REPORT FOR: cc: Leroy Chávez MD, Stanley P. MD Stephens, Thad A. MD ~ DOC #: [id number] Franklyn Devine MD DATE OF SERVICE: 12/16/2020 WOUND CARE CONSULTATION PERSONAL PHYSICIAN: Dr. Leroy Chávez. CHIEF COMPLAINT: Lower extremity lymphedema. HISTORY OF PRESENT ILLNESS: This is a 80-year-old white female who we followed in the past for chronic lower extremity edema consistent with lymphedema. The patient has done well with lymphedema wraps in the past, which is controlled her edema. The patient states her swelling in her legs is fairly controlled at this time. The patient denies any other associated wounds. The patient denies any recent weeping of her legs. The patient came back to the Emergency Department for generalized weakness and a hemoglobin of 6.4 on an outpatient lab. The patient once again denies any other associated wound care concerns. PAST MEDICAL HISTORY: Significant for atrial fibrillation, diabetes mellitus, chronic lymphedema, hypertension, hypercholesterolemia. CURRENT MEDICATIONS: Multiple, I reviewed the patient's medication list. DRUG ALLERGIES: INCLUDE CODEINE, CEPHALEXIN, AND AMOXICILLIN. SOCIAL HISTORY: The patient does not smoke or drink alcohol. Lives independently. FAMILY HISTORY: Not pertinent to current medical condition. REVIEW OF SYSTEMS: CONSTITUTIONAL: The patient denies fevers or chills. NEUROLOGIC: The patient denies any numbness, tingling or weakness in arms or legs, but does complain of generalized weakness. EYES: No complaints. ENT: No complaints. CARDIAC: The patient has chronic lower extremity edema, but no chest pain or palpitations. RESPIRATORY: The patient denies shortness of breath, cough or wheezes. [facility] [address] [place] [address] CONSULTATION Name: AGGIE YING [facility] Room #: 453-P [facility] IN M.R.#: [id number] Admission: 12/15/20 Attend Phys: Darrell Schofield MD Discharge: 12/20/20 Date of : 42 Report #: [id number] GASTROINTESTINAL: The patient denies nausea, vomiting, or abdominal pain. GENITOURINARY: The patient denies urgency or frequency. MUSCULOSKELETAL: Chronic back pain. SKIN: There are no open wounds at this time. PHYSICAL EXAMINATION: VITAL SIGNS: Temperature 36.5, pulse 79, respirations 16, BP 144/76. GENERAL: This is an alert and oriented x3, pleasant white female who is in no acute distress. HEENT: Normocephalic, atraumatic. Mucous membranes are somewhat dry. Pupils are round. Sclerae white. NECK: No JVD. LUNGS: Clear. HEART: Regular. ABDOMEN: Soft, nontender. Evaluation of the sacral-gluteal region reveals no open ulcerations or signs of pressure changes. EXTREMITIES: The patient moves all extremities without difficulty. The bilateral lower extremities have 3+ edema with some lymphatic nodules. There is no open or weeping wounds. Distal neurovascular is otherwise intact. NEUROLOGIC: Cranial nerves II through XII grossly intact. Motor and sensory are grossly intact. LABORATORY DATA: White count 8.6, hemoglobin 6.5, BUN 25, creatinine 1.4, albumin 2.2. IMPRESSION: 1. Chronic lymphedema, bilateral lower extremities without signs of cellulitis. 2. Diabetes mellitus. 3. Anemia. 4. Protein-calorie malnutrition -- severe with an albumin of 2.2. 5. Generalized debility. PLAN: At this time, we will ask PT to come by and do lymphedema wraps while the patient is in the hospital. We will encourage her to keep her legs elevated as much as possible. We will utilize physical and occupational therapy for strengthening. We will continue to maximize the patient's oral protein supplementation for continued healing. We will continue all other current medications. Franklyn Devine MD TAS/[place] [address] CONSULTATION Name: AGGIE YING [facility] Room #: 453-P DIS IN M.R.#: [id number] Admission: 12/15/20 Attend Phys: Darrell Schofield MD Discharge: 12/20/20 Date of : 42 Report #: [id number] <ELECTRONICALLY SIGNED> By: Franklyn Devine MD 12/27/20 1221 0916 2150 Franklyn Devine MD /nt
== END 2020-12-20 16:04 | disposition home health service (06) | DRG 432 ==
LOC: ER 15:20 → 4W 19:12 → EROBS 19:12 → 4W 20:25
PROVIDERS: Emergency Medicine; Hospitalist; Internal Medicine; Internal Medicine Hematology & Oncology; Nurse Practitioner; Nurse Practitioner Family; ADMIT Hospitalist; ATTEND Hospitalist
PROC: 30233N1 Transfusion of Nonautologous Red Blood Cells into Peripheral Vein, Percutaneous Approach (ICD-10-PCS; 2020-12-15)
PROC: 0DJ08ZZ Inspection of Upper Intestinal Tract, Via Natural or Artificial Opening Endoscopic (ICD-10-PCS; principal; 2020-12-16)
PROC: 07DR3ZX Extraction of Iliac Bone Marrow, Percutaneous Approach, Diagnostic (ICD-10-PCS; 2020-12-20)
DX: K74.60 Unspecified cirrhosis of liver (principal); E43 Unspecified severe protein-calorie malnutrition; K55.21 Angiodysplasia of colon with hemorrhage; K57.91 Diverticulosis of intestine, part unspecified, without perforation or abscess with bleeding; N17.0 Acute kidney failure with tubular necrosis; L03.115 Cellulitis of right lower limb; L03.116 Cellulitis of left lower limb; I48.20 Chronic atrial fibrillation, unspecified; K75.81 Nonalcoholic steatohepatitis (NASH); E78.00 Pure hypercholesterolemia, unspecified; E11.22 Type 2 diabetes mellitus with diabetic chronic kidney disease; D46.9 Myelodysplastic syndrome, unspecified; D75.9 Disease of blood and blood-forming organs, unspecified; I12.9 Hypertensive chronic kidney disease with stage 1 through stage 4 chronic kidney disease, or unspecified chronic kidney disease; E78.5 Hyperlipidemia, unspecified; R53.81 Other malaise; E66.9 Obesity, unspecified; D53.9 Nutritional anemia, unspecified; I87.8 Other specified disorders of veins; N18.2 Chronic kidney disease, stage 2 (mild); Z20.822 Contact with and (suspected) exposure to COVID-19; Z90.49 Acquired absence of other specified parts of digestive tract; Z85.3 Personal history of malignant neoplasm of breast; Z92.3 Personal history of irradiation; Z79.82 Long term (current) use of aspirin; Z79.84 Long term (current) use of oral hypoglycemic drugs; Z79.899 Other long term (current) drug therapy; Z88.1 Allergy status to other antibiotic agents; Z88.5 Allergy status to narcotic agent; Z88.8 Allergy status to other drugs, medicaments and biological substances; Z68.33 Body mass index [BMI] 33.0-33.9, adult
CPT/HCPCS: 10045; 62110; 62900; 70005

== ENCOUNTER 2020-12-26 19:52 | Emergency (ER) | payer OTHER, BC ==
[~2020-12-26] VITALS: Ht 177.8 cm; Wt 104.3 kg
[~2020-12-26 19:52] MED LIST changes: +IRON325 M1 PO; +NYAMYC15 GM TOP
[2020-12-26 21:02] LABS: ABSOLUTE NEUTROPHILS 5.7 thou/uL (1.4-8.2); BASOPHILS 0.6 % (0.0-2.0); EOSINOPHILS 2.1 % (0.0-3.0); HEMATOCRIT 24.3 % (37.0-47.0); HEMOGLOBIN 7.8 gm/dL (12.0-15.0); MCH 30.3 pg (26.0-34.0); MCHC 32.2 g/dL (28.0-37.0); MONOCYTES 5.7 % (1.0-8.0); PLATELET COUNT 259 thou/uL (150-400); POLYS 72.6 % (36.0-66.0); RBC 2.58 mil/uL (4.20-5.00); RDW 19.9 % (10.5-14.5); WBC 7.8 thou/uL (4.0-11.0)
[2020-12-26 21:14] LABS: CALCIUM 8.2 mg/dL (8.5-10.1); CREATININE 1.4 mg/dL (0.6-1.0); POTASSIUM 3.1 mmol/L (3.5-5.1)
[2020-12-26 21:17] LABS: APTT 28.5 Seconds (24.5-32.8); INR 1.07; PROTIME 11.6 Seconds (10.5-12.1)
[2020-12-26 21:20] LABS: ALBUMIN 2.1 g/dL (3.4-5.0); TOTAL BILIRUBIN 0.4 mg/dL (0.2-1.0)
[2020-12-26 22:04] VITALS: BP 122/47
== END 2020-12-26 22:04 | disposition home or self-care (01) ==
LOC: ER 19:52
PROVIDERS: Emergency Medicine
DX: K64.4 Residual hemorrhoidal skin tags (principal); D64.9 Anemia, unspecified; E11.9 Type 2 diabetes mellitus without complications; I10 Essential (primary) hypertension; I48.0 Paroxysmal atrial fibrillation; Z88.1 Allergy status to other antibiotic agents; Z88.5 Allergy status to narcotic agent; Z79.899 Other long term (current) drug therapy; Z79.82 Long term (current) use of aspirin

== ENCOUNTER 2021-01-11 15:15 | Inpatient (IN) | payer OTHER, BC ==
[~2021-01-11] VITALS: Ht 157.5 cm; Wt 88.9 kg
[2021-01-11 15:23] VITALS: BP 114/32
[2021-01-11 16:38] LABS: MCH 30.7 pg (26.0-34.0); MCHC 31.7 g/dL (28.0-37.0); MCV 96.7 fL (80.0-100.0); PLATELET COUNT 294 thou/uL (150-400); RBC 1.69 mil/uL (4.20-5.00); WBC 13.9 thou/uL (4.0-11.0)
[2021-01-11 16:40] LABS: HEMATOCRIT 16.3 % (37.0-47.0); HEMOGLOBIN 5.2 gm/dL (12.0-15.0)
[2021-01-11 16:46] LABS: CALCIUM 8.9 mg/dL (8.5-10.1); CREATININE 1.9 mg/dL (0.6-1.0); POTASSIUM 3.5 mmol/L (3.5-5.1)
[2021-01-11 16:55] LABS: ALBUMIN 2.4 g/dL (3.4-5.0); TOTAL BILIRUBIN 0.4 mg/dL (0.2-1.0); TOTAL PROTEIN 6.4 g/dL (6.4-8.2)
[2021-01-11 17:03] LABS: ANISOCYTOSIS 2+; HYPOCHROMASIA 2+
[2021-01-11 18:57] VITALS: BP 114/32
[2021-01-11 19:52] LABS: ALBUMIN 2.4 g/dL (3.4-5.0); TOTAL PROTEIN 6.4 g/dL (6.4-8.2)
[2021-01-11 19:55] VITALS: BP 114/40
[2021-01-11 21:40] VITALS: BP 118/45; BP 120/51
[2021-01-11 23:45] VITALS: BP 120/51; BP 123/48; BP 126/59
[2021-01-12] VITALS (8 sets, daily range): BP systolic 103–128; BP diastolic 50–82
[2021-01-12 04:57] LABS: HEMOGLOBIN 6.9 gm/dL (12.0-15.0)
[2021-01-12 05:00] LABS: MCH 32.3 pg (26.0-34.0); MCHC 34.9 g/dL (28.0-37.0); MCV 92.7 fL (80.0-100.0); RBC 2.14 mil/uL (4.20-5.00); RDW 18.5 % (10.5-14.5); WBC 11.4 thou/uL (4.0-11.0)
[2021-01-12 05:06] LABS: CALCIUM 8.6 mg/dL (8.5-10.1); CREATININE 1.7 mg/dL (0.6-1.0); MAGNESIUM 2.5 mg/dL (1.8-2.4)
[2021-01-12 05:23] LABS: HEMATOCRIT 19.8 % (37.0-47.0)
[2021-01-12 05:30] LABS: POTASSIUM 2.8 mmol/L (3.5-5.1)
--- NOTE | 2021-01-12 07:31 | NUR ---
PATIENTS CARES WERE ASSUMED AT APPROX 1999 AFTER A TRANSFER FROM ER. PATIENT WAS ADMITTED TO THE FLOOR. ORDERS WERE DISCOVERED THAT A ORDER TO TRANSFUSE AT 1544 AND NOTHING DONE AT 1999 WITH A Hbg OF 5.2. 2 UNITS OF PRBC WERE GIVEN. RECHECKED SHOWED Hbg TO BE6.9 NOW. PATIENT HAS PROTONIX GTT AT 25ML /HR. STOOL SENT TO LAB FOR A HEMMOCCOULT.
[2021-01-12 14:27] LABS: HEMATOCRIT 21.9 % (37.0-47.0); HEMOGLOBIN 7.2 gm/dL (12.0-15.0)
--- NOTE | 2021-01-12 14:42 | NUR ---
SW COMPLETED ASSESSMENT W/ PT AT CHAIRSIDE ON THIS DAY. PT IS A&OX4 AND LIVES IN 2 LEVEL HOME W/ 2 FULL FLIGHT OF STAIRS AND 3 ENTRY STEPS. PT LIVES IN HOME W/ SON MAITE [phone] WHO IS ALSO LISTED DPOA IN ADDITION TO SON MECCA [phone]. PT IS INDEPENDENT W/ ADL'S AND REQUIRES MINMAL ASSISTANCE AT HOME W/ COOKING/DRIVING. DME: R/W, W/C, ROLLATOR, S/C, AND CANE SNF/REHAB/HH/DIALYSIS: HH W/ [facility] PRIOR TO ADMISSION TRANSPORTATION: FAMILY VEHICLE ADDITONAL INFO: [facility] IS AWARE OF PT ADMISSION AND HH IS WILLING TO RESUME CARE AT D/C D/C PLAN: HOME WHEN MEDICALLY STABLE W/ FAMILY AND RESUMPTION OF HH W/ [facility]
[2021-01-13 05:08] VITALS: BP 132/56
[2021-01-13 05:24] LABS: ALBUMIN 2.4 g/dL (3.4-5.0); CALCIUM 8.7 mg/dL (8.5-10.1); CREATININE 1.5 mg/dL (0.6-1.0); HEMOGLOBIN 6.8 gm/dL (12.0-15.0); PHOSPHORUS 2.4 mg/dL (2.5-4.9); POTASSIUM 3.5 mmol/L (3.5-5.1); RDW 19.1 % (10.5-14.5)
[2021-01-13 05:26] LABS: HEMATOCRIT 20.5 % (37.0-47.0); MCH 31.4 pg (26.0-34.0); MCHC 33.1 g/dL (28.0-37.0); MCV 94.6 fL (80.0-100.0); RBC 2.16 mil/uL (4.20-5.00); WBC 11.8 thou/uL (4.0-11.0)
--- NOTE | 2021-01-13 05:36 | NUR ---
PATIENTS CARES WERE ASSUMED AT SHIFT CHANGE. PATIENT WAS ASSESSED AND MEDS WERE PASSED. PATIENT WAS IN A BETTER MOOD THIS SHIFT. PATIENT WA ANGERY AND TEARFUL FOR THE DAY SHIFT. PATIENT VERBALIZED SHE WANTS TO GO HOME. ROUNDS WERE MADE . PATIENT DID SLEEP IN THE RECLYNER TONIGHT. THE CHAIR ALARMIS ON.
[2021-01-13 05:47] LABS: ABSOLUTE RETIC COUNT 0.1521 10^6/uL; OBSERVED RETIC COUNT 6.94 % (0.6-2.6)
[2021-01-13 06:10] LABS: % SATURATION 9 % (20-39); IRON 31 ug/dL (50-170); TIBC 342 ug/dL (250-450)
[2021-01-13 07:48] VITALS: BP 119/62
[2021-01-13 11:58] VITALS: BP 115/57
[2021-01-13 13:03] LABS: HEMOGLOBIN 6.7 gm/dL (12.0-15.0)
[2021-01-13 13:06] LABS: HEMATOCRIT 20.1 % (37.0-47.0)
--- NOTE | 2021-01-13 16:52 | NUR ---
Should the pt be dc ready over the weekend, Gabrielle LOZA will dc summary/instructions faxed to [phone] and their oncall RN called at [phone] and they can see her the next day. EGD canceled this am. GI montioring her anemia as they do not feel the EGD or colonoscopy can reach the area in question. Some discussion of possible need for transfer pending her progress. [facility] transfer form and kcfd form on the chart if needed.
[2021-01-13 16:53] VITALS: BP 106/57
[2021-01-13 19:20] VITALS: BP 116/55
[2021-01-13 23:01] VITALS: BP 116/55
[2021-01-14] VITALS (7 sets, daily range): BP systolic 97–120; BP diastolic 46–58
--- NOTE | 2021-01-14 06:23 | NUR ---
ASSUMED PT CARE AT 1900, PT IS AWAKE, ALERT AND ORIENTED, FORGETFUL AT TIMES, DENIES PAIN OR SOB, SR ON TELE, VSS, HAD 4 SMALL BMS TONIGHT, ASESSMENTS CHARTED, NO NEEDS AT THIS TIME, WILL FOLLOW POC
[2021-01-14 11:22] LABS: MCH 31.6 pg (26.0-34.0); MCHC 33.2 g/dL (28.0-37.0); MCV 95.1 fL (80.0-100.0); RDW 18.3 % (10.5-14.5); WBC 10.4 thou/uL (4.0-11.0)
[2021-01-14 11:31] LABS: HEMOGLOBIN 6.3 gm/dL (12.0-15.0)
--- NOTE | 2021-01-14 19:48 | NUR ---
RN ASSUMED PT'S CARE AT 0700-1900PM, PT IS A&OX4, PT IS ON ROOM AIR, PT'S VS AND O2SAT ARE STABLE, BUT PT FELL MORE WEAK TODAY, RN HAD CALLED HOSPITAL DR TO REPORT PT'S LOW HGB6.3, NEW ORDER 1 UNIT BLOOD TRANSFUSION HAS STARTED AT 1700PM, PT DOES NOT HAVE TRANSFUSIN REACHTION AT DAY [facility] , RN HAS REPORTED TO NEXT SHIFT TO KEEP EYE ON PT.
[2021-01-15 04:07] VITALS: BP 99/45
[2021-01-15 04:50] LABS: HEMATOCRIT 22.9 % (37.0-47.0); HEMOGLOBIN 7.6 gm/dL (12.0-15.0); MCH 31.1 pg (26.0-34.0); MCHC 33.1 g/dL (28.0-37.0); MCV 93.9 fL (80.0-100.0); RBC 2.44 mil/uL (4.20-5.00); RDW 17.2 % (10.5-14.5); WBC 11.7 thou/uL (4.0-11.0)
--- NOTE | 2021-01-15 04:59 | NUR ---
assumed pt care at 1900, pt is awake, alert and orientedx3-4, sometimes forgetful, sr/bbb on tele, blood transiusion completed, no reactions noted, pt got up to the chair, feeling better, assessments as charted, meds given as per mar, 2 dark small bowel movements this shift, no needs at this time, will continue to monitor and follow poc
[2021-01-15 08:00] VITALS: BP 138/62
[2021-01-15 12:26] VITALS: BP 113/51
--- NOTE | 2021-01-15 14:33 | NUR ---
ASSUMED CARE APPROX 1100. VSS PT ORIENTED X4. DROWSY AT TIMES. PT UP IN CHAIR COLTEN WELL. CONT TO HAVE LOOSE STOOLS, DARK. IV PUSH PROTONIX PER GI ORDERS. POSSIBLE EGD TOMORROW, NPO AFTER MIDNIGHT. UOP ADEQUATE. REDNESS ON BOTTOM BARRIER OINTMENT APPLIED FREQUENTLY. O2 SATS WNL ON ROOM AIR. SOB WITH EXERTION. FAMILY VISITED PT THIS SHIFT. CURRENTLY SITTING UP IN CHAIR RESTING IN NAP. CONT POC. REPORT PASSED TO [facility].
[2021-01-15 16:00] VITALS: BP 109/40
[2021-01-15 20:30] VITALS: BP 115/53
[2021-01-16] VITALS (8 sets, daily range): BP systolic 99–132; BP diastolic 44–65
[2021-01-16 04:55] LABS: HEMATOCRIT 23.3 % (37.0-47.0); HEMOGLOBIN 7.9 gm/dL (12.0-15.0); MCH 32.3 pg (26.0-34.0); MCHC 33.9 g/dL (28.0-37.0); MCV 95.1 fL (80.0-100.0); RBC 2.45 mil/uL (4.20-5.00); RDW 17.5 % (10.5-14.5); WBC 9.2 thou/uL (4.0-11.0)
[2021-01-16 05:02] LABS: CALCIUM 8.5 mg/dL (8.5-10.1); CREATININE 1.6 mg/dL (0.6-1.0)
[2021-01-16 05:04] LABS: POTASSIUM 2.8 mmol/L (3.5-5.1)
--- NOTE | 2021-01-16 08:05 | NUR ---
PT SLEEPS SITTING IN RECLYNER WITH LEGS ELEVATED, NO C/O PAIN, 2 SMALL LOOSE STOOLS THIS SHIFT, NPO SINCE MNOC, VSS, HOPES TO GO HOME SOON, ASSESSMENTS CHARTED WILL CON'T PPOC.
--- NOTE | 2021-01-16 19:24 | NUR ---
PT CARE ASSUMED AT 0700. ASSESSMENTS CHARTED. MEDICATIONS CHARTED. LH IV. SINUS RHYTHM, BUNDLE BRANCH BLOCK. STANDBY ASSIST TO BSC. ACHS; CARB CONTROL. BM LIGHT BROWN MOSTLY JELLY LIKE.
[2021-01-17] VITALS (7 sets, daily range): BP systolic 99–134; BP diastolic 51–74
--- NOTE | 2021-01-17 04:37 | NUR ---
PT RESTING ON AND OFF THRU THE NOC UP WITH SBA TO BSC, VSS, NO C/O PAIN, HOPES TO GO HOME SOON, WILL CON'T TO MONITOR PER PPOC
[2021-01-17 04:58] LABS: HEMATOCRIT 24.5 % (37.0-47.0); HEMOGLOBIN 8.1 gm/dL (12.0-15.0); MCH 31.6 pg (26.0-34.0); MCV 95.8 fL (80.0-100.0); RBC 2.56 mil/uL (4.20-5.00); RDW 18.7 % (10.5-14.5); WBC 9.7 thou/uL (4.0-11.0)
--- NOTE | 2021-01-17 14:50 | NUR ---
ON-GOING ASSESSMENT: CM REVIEWED CHART AND SPOKE WITH PATIENT. PT HAS ORDERS TO DISCHARGE HOME TODAY WITH RESUMPTION OF HOME HEALTH. CM NOTIFIED LIASON FROM [facility] AND CM ALSO FAXED DISCHARGE ORDERS TO [facility] AND CONFIRMED THEY RECEIVED IT. PT HAS NO FURTHER NEEDS FROM .
--- NOTE | 2021-01-17 16:45 | NUR ---
PT CARE ASSUMED AT 0700. ASSESSMENTS CHARTED. MEDICATIONS CHARTED. LH IV. SINUS RHYTHM. BSC. STAND-BY ASSIST. ACHS; CARB CONTROL. PT TO DISCHARGE TO HOME. DISCHARGE PAPERWORK SIGNED. TELEMETRY D/C'D. IV D/C'D.
== END 2021-01-17 16:32 | disposition home health service (06) | DRG 377 ==
LOC: ER 15:15 → EROBS 18:24 → 2N 18:24
PROVIDERS: Emergency Medicine; Hospitalist; Internal Medicine; Internal Medicine Gastroenterology; Internal Medicine Hematology & Oncology; Nurse Practitioner; Nurse Practitioner Family; ADMIT Internal Medicine; ATTEND Internal Medicine
PROC: 30233N1 Transfusion of Nonautologous Red Blood Cells into Peripheral Vein, Percutaneous Approach (ICD-10-PCS; principal; 2021-01-11)
DX: K92.1 Melena (principal); E43 Unspecified severe protein-calorie malnutrition; N17.0 Acute kidney failure with tubular necrosis; D62 Acute posthemorrhagic anemia; L97.929 Non-pressure chronic ulcer of unspecified part of left lower leg with unspecified severity; L97.919 Non-pressure chronic ulcer of unspecified part of right lower leg with unspecified severity; K74.69 Other cirrhosis of liver; I48.0 Paroxysmal atrial fibrillation; I12.9 Hypertensive chronic kidney disease with stage 1 through stage 4 chronic kidney disease, or unspecified chronic kidney disease; N18.9 Chronic kidney disease, unspecified; E11.22 Type 2 diabetes mellitus with diabetic chronic kidney disease; I89.0 Lymphedema, not elsewhere classified; I87.8 Other specified disorders of veins; K76.0 Fatty (change of) liver, not elsewhere classified; D46.9 Myelodysplastic syndrome, unspecified; E78.00 Pure hypercholesterolemia, unspecified; Z66 Do not resuscitate; Z85.3 Personal history of malignant neoplasm of breast; Z92.3 Personal history of irradiation; Z90.49 Acquired absence of other specified parts of digestive tract; Z79.84 Long term (current) use of oral hypoglycemic drugs; Z79.899 Other long term (current) drug therapy; Z88.1 Allergy status to other antibiotic agents; Z88.5 Allergy status to narcotic agent
CPT/HCPCS: 10081